=== PATIENT | female | born 1995 | race Caucasian/White ===

== ENCOUNTER 2025-01-26 07:23 | Emergency (ER) | payer OTHER, SELFPAY ==
--- NOTE | ~2025-01-26 | US_ITS ---
Limited Abdominal Sonogram: Real-time sonographic imaging of the right upper quadrant was performed. Clinical History: Pain Findings: The liver appears normal with no evidence of mass lesion or bile duct dilatation. Main por aniceto vein demonstrates normal direction of flow. The gallbladder is partially contracted, with 2.2 cm echogenic, shadowing gallstone. Gallbladder wall is slightly thickened up to 5 mm. The common bile du ct measures 6 mm. The visualized pancreas, aorta, and IVC are unremarkable. Impression: Cholelithiasis. Associated gallbladder wall thickening may be due to underdistention versus acute cholecystitis. Leanna elate clinically. Consider HIDA scan as indicated. Reviewed, dictated and finalized at location . AGER AND STRAPPER Impression: Cholelithiasis. Associated gallbladder wall thickening may be due to underdistention versus acu te cholecystitis. Correlate clinically. Consider HIDA scan as indicated.
[2025-01-26 07:23] VITALS: BP 118/59; PULSE 83; RESP 16; TEMP 36.6; O2SAT 96
--- NOTE | 2025-01-26 07:33 | ED_ITS ---
HPI - Abdominal Pain General Chief Complaint: Abdominal Pain Stated Complaint: abd pain Time Seen by Provider: 01/26/25 07:33 Source: patient Mode of arrival: ambulatory Limitations: no limitations History of Present Illness HPI narrative: Patient is a 29-year-old female with known recurrent colic gallbladder for many years and here with right upper quadrant pain for the past few days getting worse. She is having some constipation but had a bowel movement yesterday. Urination is normal pattern. Surgeons have seen the patient and have suggested to wait at this time for any kind of cholecystectomy. No history of cholecystitis. MD elicited complaint: abdominal pain Pertinent past history: other ( Gallbladder disease) Onset (ago): day(s) ( 3) Pain Consistency: constant Location: RUQ and RLQ Severity: moderate Pain scale (0-10): 4 Quality: aching and sharp Radiation: RUQ and RLQ Migration to: no migration Exacerbating factors: nothing Relieving factors: nothing Context: confirms history of similar episodes Associated symptoms: constipation Related Data Allergies Allergy/AdvReac Type Severity Reaction Status Date / Time No Known Allergies Allergy Verified 01/26/25 07:27 Review of Systems 2 Review of Systems: All systems reviewed & are unremarkable except as noted in HPI and below Constitutional: Constitutional: Reports no additional constitutional complaints Eyes: Eyes: Reports no additional eye complaints ENT: Reports system reviewed and no additional complaints, except as documented Cardiovascular: Cardiovascular: Reports no additional cardiovascular complaints Respiratory: Respiratory: Reports no additional respiratory complaints Gastrointestinal: Gastrointestinal: Reports no additional gastrointestinal complaints Genitourinary: Genitourinary: Reports no additional female genitourinary complaints Musculoskeletal: Musculoskeletal: Reports no additional musculoskeletal complaints Integumentary/Breasts: Skin/Breast: Reports system reviewed and no additional complaints, except as docu Neurologic: Reports system reviewed and no additional complaints, except as documented Psychiatric: Psychiatric: Reports no additional psychiatric complaints Endocrine: Endocrine: Reports no additional endocrine complaints Hematologic/Lymphatic: Hematologic/Lymphatic: Reports no additional hematologic/lymphatic complaints Allergic/Immunologic: Allergic/Immunologic: Reports no additional allergic/immunologic complaints Exam 2 Const: General: healthy appearing, no acute distress and alert Nutritional Appearance: well nourished Orientation/consciousness: patient oriented x3 Limitations: no limitations HENMT: Head: normal to inspection Ears: external ears normal F kennedy/Nose/Sinus: Normal external nose present Eyes: Conjunctivae: conjunctivae normal Pupils: Equal, round and reactive pupils present EOM: EOMs intact bilaterally Neck: Neck: normal visual inspection Chest: Chest palpation & inspection: normal inspection of the chest Resp: Effort & Inspection: normal respiratory effort and not labored A uscultation: clear to auscultation bilaterally, no crackles and diminished lung sounds Cardio: Rate: regular rate Rhythm: regular rhythm Heart sounds: no murmurs GI: Inspection: non-distended GI Palp: Yes Soft to palpation, Yes Tenderness to palpation present (GI) ( right upper quadrant and some right lower quadrant), No Guarding due to palpation present (GI), No Rigid due to palpation, No Hernia present, No Palpable mass present and No Rebound tenderness present Auscultation: normal bowel sounds : General: Yes bladder normal to palpation Urinary Catheter: Urinary Catheter: patent and draining Back/Spine/Pelvis: Back: no CVA tenderness Skin: General skin exam: normal color Rashes: no rashes Wounds: no wounds Neuro: General: patient oriented x3 Cranial nerves: Yes Nystagmus not present Speech: normal speech Extrem: General: normal to inspection Psych: Mental Status: mental status grossly normal Affect: normal affect Attitude: cooperative Course Vital Signs Vital signs: Vital Signs Temperature 36.6 C 01/26/25 07:23 Pulse Rate 83 01/26/25 07:23 Respiratory Rate 16 01/26/25 07:23 Blood Pressure 118/59 L 01/26/25 07:23 Pulse Oximetry 96 01/26/25 07:23 Oxygen Delivery Room Air 01/26/25 07:23 Temperature 36.6 C 01/26/25 07:23 Pulse Rate 69 01/26/25 11:30 Respiratory Rate 17 01/26/25 11:30 Blood Pressure 95/59 L 01/26/25 11:30 Pulse Oximetry 99 01/26/25 11:30 Oxygen Delivery Room Air 01/26/25 10:30 MDM - Abdominal Pain MDM Narrative Medical decision making narrative: patient is a 29-year-old female with recurrent gallbladder colic. Surgeons have decided to wait on surgery at this time. Will look for inflamed /infected gallbladder at this time. Workup in progress. Final workup is not conclusive for acute cholecystitis and review the case with Dr. Rao at [facility] who was the surgeon and he reviewed the case himself and said outpatient with Augmentin for 7 days and a follow-up for further scanning and removal. Lab Data Attestation: I reviewed the patient's lab results. 01/26/25 08:02 01/26/25 08:02 Labs: Lab Results 01/26/25 Range/Units 08:02 WBC 5.6 (4.8-10.8) K/mm3 RBC 4.47 (4.20-5.40) M/mm3 Hgb 13.2 (12.0-15.0) g/dL Hct 39.9 (35.0-49.0) % MCV 89.3 (78.0-102.0) fL MCH 29.5 (27.0-31.0) pg MCHC 33.1 (32-36) g/dL RDW 12.7 (11.6-14.4) % Plt Count 206 (150-420) K/mm3 MPV 10.4 (9.2-11.8) fl Immature Gran % (Auto) 0.4 H (0.0-0.0) % Neut % (Auto) 56.5 (50.0-70.0) % Lymph % (Auto) 34.9 (18.0-42.0) % [place] % (Auto) 6.6 (2.0-11.0) % Eos % (Auto) 0.9 L (1.0-6.0) % Baso % (Auto) 0.7 (0.0-1.0) % Lymph # (Auto) 1.96 (1.10-4.50) K/mm3 [place]lee # (Auto) 0.37 (0.10-0.90) K/mm3 Eos # (Auto) 0.05 (0.02-0.50) K/mm3 Baso # (Auto) 0.04 (0.00-0.10) K/mm3 Abs Immat Gran (auto) 0.02 H (0.00-0.00) K/mm3 Absolute Neuts (auto) 3.17 (1.70-7.20) K/mm3 Absolute Nucleated RBC 0.00 (0.00-0.00) K/mm3 Nucleated RBC % 0.0 (0-0.0) % Sodium 143 (136-145) mmol/L Potassium 4.3 (3.5-5.1) mmol/L Chloride 106 (98-108) mmol/L Carbon Dioxide 27 (21-32) mmol/L Anion Gap 10 (4-12) mmol/L BUN 10 (7-18) mg/dL Creatinine 0.81 (0.55-1.02) mg/dL Estim Creat Clear Calc 87 ml/min Estimated GFR > 60 (59 - ) Glucose 92 (70-99) mg/dL Calculated Osmolality 295 (285-295) mOsm/kg Calcium 8.4 L (8.5-10.1) mg/dL Total Bilirubin 0.4 (0.00-1.00) mg/dL AST 32 (15-37) U/L ALT 74 H (14-59) U/L Alkaline Phosphatase 96 (46-116) U/L Total Protein 7.2 (6.4-8.2) g/dL Albumin 4.0 (3.4-5.0) g/dL Lipase 37 (16-77) U/L Urine Color Light yellow (Yellow) Urine Appearance Clear (Clear) Urine pH 6.0 (5.0-8.0) Ur Specific [place] 1.025 H (1.010-1.020) Urine Protein Negative (Negative) Urine Glucose (UA) Negative (Negative) Urine Ketones Negative (Negative) Ur Blood (Man) Negative (Negative) Urine Nitrate Negative (Negative) Urine Bilirubin Negative (Negative) Urine Urobilinogen 0.2 (0.2-1.0) mg/dL Leukocyte Esterase Rfl Negative (Negative) JUNI/UL Urine Test Negative Imaging Data Attestation: I personally reviewed and interpreted this imaging study as follows: Radiologist's impression: ITS Impressions Upper Quadrant Ultrasound 01/26/25 07:57 Impression: Cholelithiasis. Associated gallbladder wall thickening may be due to underdistention versus acute cholecystitis. Correlate clinically. Consider HIDA scan as indicated. Discharge Plan Discharge Clinical Impression: Biliary colic Cholelithiasis Qualifiers: Cholelithiasis location: gallbladder Cholecystitis presence: without cholecystitis Biliary obstruction: without biliary obstruction Qualified Code(s): K80.20 - Calculus of gallbladder without cholecystitis without obstruction Patient Disposition: Home, Self-Care Condition: Stable Instructions: Antibiotic Form, Biliary Colic (ED), Gallstones (ED) Additional Instructions: please follow-up with the primary doctor in the next week. Please follow-up with the surgeon at the telephone: [phone]. They will further discuss testing and gallbladder removal. Patient Language: Kyrgyz Prescriptions: New amoxicillin-pot clavulanate 875-125 mg tablet 1 tablet PO BID 7 Days Qty: 14 0RF hydrocodone-acetaminophen 5-325 mg tablet 1 tablet PO Q8H PRN (Reason: pain) Qty: 20 0RF Rx Instructions: 1-2 tabs per dose Follow-up/Referrals: UNKNOWN,DOCTOR [Non-Staff] - Time of Disposition: 09:02
[2025-01-26 08:07] LABS: Add Urine Microscopic? NO; Appearance Urine Clear (Clear); Basophils Absolute Auto 0.04 K/mm3 (0.00-0.10); Basophils Percent Auto 0.7 % (0.0-1.0); Bilirubin Urine Negative (Negative); Blood Urine Negative (Negative); Color Urine Light Yellow (Yellow); Eosinophils Absolute Auto 0.05 K/mm3 (0.02-0.50); Eosinophils Percent Auto 0.9 % (1.0-6.0); Glucose Urine UA Negative (Negative); Hematocrit 39.9 % (35.0-49.0); Hemoglobin 13.2 g/dL (12.0-15.0); Immature Granulocyte Absolute 0.02 K/mm3 (0.00-0.00); Immature Granulocyte Percent A 0.4 % (0.0-0.0); Ketones Urine Negative (Negative); Leukocyte Esterase Ur Negative LEU/UL (Negative); Lymphocytes Absolute Auto 1.96 K/mm3 (1.10-4.50); Lymphocytes Percent Auto 34.9 % (18.0-42.0); Mean Corpuscular HGB Conc 33.1 g/dL (32-36); Mean Corpuscular Hemoglobin 29.5 pg (27.0-31.0); Mean Corpuscular Volume 89.3 fL (78.0-102.0); Mean Platelet Volume 10.4 fl (9.2-11.8); Monocytes Absolute Auto 0.37 K/mm3 (0.10-0.90); Monocytes Percent Auto 6.6 % (2.0-11.0); Neutrophils Absolute Auto 3.17 K/mm3 (1.70-7.20); Neutrophils Percent Auto 56.5 % (50.0-70.0); Nitrate Urine Negative (Negative); Platelet Count Result 206 K/mm3 (150-420); Protein Urine Negative (Negative); Red Blood Count 4.47 M/mm3 (4.20-5.40); Red Cell Distribution Width 12.7 % (11.6-14.4); Specific Grav Ur 1.025 (1.010-1.020); Urobilinogen Urine 0.2 mg/dL (0.2-1.0); White Blood Count 5.6 K/mm3 (4.8-10.8)
[2025-01-26 08:10] LABS: Pregnancy On Board Control Positive; Urine Pregnancy Test Negative
[2025-01-26 08:27] LABS: Alanine Aminotransferase 74 U/L (14-59); Alkaline Phosphatase 96 U/L (46-116); Anion Gap 10 mmol/L (4-12); Aspartate Amino Transferase 32 U/L (15-37); Bilirubin,Total 0.4 mg/dL (0.00-1.00); Blood Urea Nitrogen 10 mg/dL (7-18); Calcium 8.4 mg/dL (8.5-10.1); Carbon Dioxide 27 mmol/L (21-32); Chloride 106 mmol/L (98-108); Estimated CRCL calculation 87 ml/min; Estimated Glomerular Filt Rate > 60; Glucose 92 mg/dL (70-99); Lipase 37 U/L (16-77); Osmolality Calculated 295 mOsm/kg (285-295); Potassium 4.3 mmol/L (3.5-5.1); Sodium 143 mmol/L (136-145); Total Protein 7.2 g/dL (6.4-8.2)
--- OUTSIDE RECORDS SUMMARY | 2025-01-26 08:28 | XMS_ITS | Clinical Summary ---
Author Organization [facility] Address [facility] [place] [address] Care Team Providers Care Vice President Pharmacy Name Role Phone None, Provider MD Primary Care Provider Unavaila ble Allergies Active Allergy Reactions Criticality Noted Date Comments Amoxicillin Hives 12/12/2017 Penicillins Hives 12/12/2017 Medications vitamin 27-1 MG Tab tablet Take 1 tablet by mouth daily. Active HYDROcodone-kennedy taminophen 5-325 MG tabletIndicatio ns:Acute Pain < 7 Day Supply Take 1 tablet by mouth every 4 (four) hours as needed. Indications: Acute Pain < 7 Day Supply 20 tablet 11/15/2020 Active naproxen (NAPROSYN) 500 MG tabletIndicatio ns: delivery delivered ([facility]) Take 1 tablet (500 mg total) by mouth 2 (two) times daily as needed (Take with food for moderate pain). 40 tablet 11/15/2020 Active Resolved Problems Problem Noted Date Diagnosed Date Resolved Date Vaginal bleeding 11/12/2020 11/15/2020 Immunizations Name Administration Dates Next Due Fluzone 6 Months+ Quad (0.5 mL Prefilled Syringe ) 11/14/2020 Family History Medical History Relation Comments Diabetes Maternal Grandmother Breast Cancer Mother Relation Status Comments Maternal Grandmother Mother Social History Tobacco Use Types Packs/Day Years Used Date Smoking Tobacco: Never Smokeless Tobacco: Never Alcohol Use Standard Drinks/Week Comments Not Currently 0 (1 standard drink = 0.6 oz pur e alcohol) Humiliation, Afraid, Rape, and Kick questionnair e Answer Date Recorded Within the last year, have y ou been afraid of your partner or ex-partner? No 10/20/2020 Within the last year, have y ou been humiliated or emotionally abused in other ways by your partner or ex-partner? No Within the last year, have y ou been kicked, hit, slapped, or otherwise physically hurt by your partner or ex-partner? No 10/20/2020 Within the last year, have y ou been raped or forced to have any kind of sexual activity by your partner or ex-partner? No 10/20/2020 Depression Answer Date Recor ded Last EPDS Total Score 8 11/13/2020 Last EPDS Self Harm Result 11/13 Comments No Sex and Gender Information Value Date Recorded Sex Assigned at Not on file Legal Sex Female 5:54 PM SPD MANAGER Gender Identity Not on file Sexual Orientation Not on file Last Filed Vital Signs Vital Sign Reading Time Taken Comments Blood Pressure 112/65 11/15/2020 8:43 AM SPD MANAGER Pulse 67 11/14/2020 8:00 PM SPD MANAGER Temperature 36.3 C (97.4 F) 11/15/2020 8:43 AM SPD MANAGER Respiratory Rate 16 11/15/2020 8:43 AM SPD MANAGER Oxygen Saturation 100% 11/15/2020 8:43 AM SPD MANAGER Inhaled Oxygen Concentration - - Weight 70.3 kg (155 lb) 11/12/2020 6:49 PM SPD MANAGER Height 157.5 cm (5' 2 ) 11/12/2020 6:49 PM SPD MANAGER Body Mass Index 28.35 11/12/2020 6:49 PM SPD MANAGER Plan of Treatment Health Maintenance Due Date Last Done Comments Cervical Cancer Screening Pa p Smear (Age 21 to 29) Every 3 Years 1996 Cervical Cancer Screening 1996 Annual Physical 1999 Hepatitis C 2014 DTaP, Tdap and Td Vaccines ( 1 - Tdap) 2015 Hepatitis B Vaccines (1 of 3 - 19+ 3-dose series) 2015 COVID-19 Vaccine (2023-2 5 season) 2024 Influenza Adult (#1) 2024 11/14/2020 HPV Vaccines Aged Out No longer eligi ble based on patient's age to complete this topic Meningococcal B Vaccine Aged Out No l onger eligible based on patient's age to complete this topic Meningococcal Vaccine Aged Out No jevon emma eligible based on patient's age to complete this topic Pneumococcal Vaccine: Pediat rics (0 to 5 Years) and At-Risk Patients (6 to 64 Years) Aged Out No longer eligi ble based on patient's age to complete this topic RSV Immunizations Under 20 Months Aged Out No longer eligible based on patient's age to complete this topic Insurance [facility] Advance Directives * Full Code (Latest Code Status on File) Date Activated Date Inactivated Comments 11/13/2020 8:22 AM 11/15/2020 5:12 PM * Full Code Date Activated Date Inactivated Comments 11/12/2020 8:44 PM 11/13/2020 8:22 AM Care Teams Vice President Pharmacy Relationship Specialty Start Date End Date None, Provider, PCP - General 10/20/20
--- OUTSIDE RECORDS SUMMARY | 2025-01-26 08:28 | XMS_ITS | Encounter Summary ---
Author Organization [facility] Address [facility] [place] [address] Care Team Providers Care Blast Setter Name Role Phone None, Provider MD Primary Care Provider Unavaila ble Encounter Details Date Type Department Care Team (Late st Contact Info) Description 11/17/2020 Hospital Follow-up Call [facility] [place] [address] Toay Mejia, RN Social History Tobacco Use Types Packs/Day Years [...] on file Legal Sex Female 5:54 PM METAL HANDLER Gender Identity Not on file Sexual Orientation Not on file COVID-19 Exposure Response Date Recorded In the last month, have you been in contact with someone who was confirmed or suspected to have Coronavirus / COVID-19? No / Unsure 11/12/2020 8:13 PM METAL HANDLER documented as of this encounter Functional Status * RETIRED Are you deaf or do you have serious difficulty hearing Answer Date of Assessment Author Status No 11/12/2020 9:38 PM METAL HANDLER Activ e * RETIRED Are you blind or do you have serious difficulty seeing, even when wearing glasses? Answer Date of Assessment Author Status No 11/12/2020 9:38 PM METAL HANDLER Activ e * Do you have serious difficulty walking or climbing stairs? Answer Date of Assessment Author Status No 11/12/2020 9:38 PM METAL HANDLER Mandy Arroyo RN A ctive * Do you have difficulty dressing or bathing? Answer Date of Assessment Author Status No 11/12/2020 9:38 PM METAL HANDLER Mandy Arroyo RN A ctive * Because of a physical, mental, or emotional condition, do you have difficulty doing errands alone such as visiting a doctor's office or shopping? Answer Date of Assessment Author Status No 11/12/2020 9:38 PM Mandy Guzman RN A ctive documented as of this encounter Mental Status * Because of a physical, mental, or emotional condition, do you have serious difficulty concentrating, remembering, or making decisions? Answer Entry Date Author Status No 11/12/2020 9:38 PM Mandy Guzman RN A ctive documented in this encounter Plan of Treatment Not on file documented as of this encounter Visit Diagnoses Not on filedocumented in this encounter Care Teams Blast Setter Relationship Specialty Start Date End Date None, Provider, PCP - General 10/20/20 documented as of this encounter
--- OUTSIDE RECORDS SUMMARY | 2025-01-26 08:28 | XMS_ITS | Data Portability ---
Author Organization [facility] JUDYJared Address [address] [place] [address] Care Team Providers Care Marketing Graphics Specialist Name Role Phone TIFFANIE LINO Primary Care Provider Assessment No assessment recorded. Plan of Treatment Reminders Order Date Submit Date Provider Last Modified By Organization Details Last Modified Time Details Appointments None recorded. Lab influenza virus A + B + SARS-CoV-2 (COVID19) Ag panel, rapid IA, upper respirator y specimen 2023 024 mariah In-Office Order, Internal Use Only DO Not Attach Compendium DO Not Attach Compendium, Do Not Delete/merge, [id number] 4 12:42:[address] referral 2023 024 dteldon Maki [employer], [address] , [facility] [address], [place], [address], 4 08:55:25 Procedures None recorded. Surgeries None recorded. Imaging None recorded. Medication Orders azithromyc in 500 [address] [facility] [place], [address], 4 10:31:26 buspirone 10 [address] tablet [address] [facility] [address] [place], [address], 3 15:42:50 Patient TargetsNo targets recorded. Patient Instructions Encounter Date Encounter Id Patient Instructions Last Modified By Organization Details Last Modified Time 09/19/2023 [id number] A healthy lifestyle: care instructions jnanney Not available 09/19/2023 10:29:39 04/30/2024 [id number] A healthy lifestyle: care instructions jnanney Not available 04/30/2024 11:16:04 Reason for Referral Psychiatrist Referral for Mi xed anxiety and depressive disorder Referring Physician: Tiffanie Lino, Family Medicine, Encounter Date: 02/07/2024 Results Created Date Observation Date Name Description Value Unit Range Abnormal Flag Note LastModifiedBy Organization Detail LastModifiedTime 03/23/20 24 03/23/2024 influ jeremy virus A + B + SARS- CoV-2 (COVI D19) Ag panel , rapid IA, upper respi rator y speci men Flu A negati ve Not Available In-Office Order Internal Use Only DO Not Attach Compendium DO Not Attach Compendium, Do Not Delete/merge, [id number] 03/23/2024 12:23:21 03/23/20 24 03/23/2024 influ jeremy virus A + B + SARS- CoV-2 (COVI D19) Ag panel , rapid IA, upper respi rator y speci men Flu B negati ve Not Available In-Office Order Internal Use Only DO Not Attach Compendium DO Not Attach Compendium, Do Not Delete/merge, [id number] 03/23/2024 12:23:21 03/23/20 24 03/23/2024 influ jeremy virus A + B + SARS- CoV-2 (COVI D19) Ag panel , rapid IA, upper respi rator y speci men Rapid SARS CoV 2 Ag, QL IA, respiratory specimen negati ve Not Available In-Office Order Internal Use Only DO Not Attach Compendium DO Not Attach Compendium, Do Not Delete/merge, [id number] 03/23/2024 12:23:21 10/17/20 23 10/17/2023 CT, abdom en + pelvi s, w/o contr ast No observ ation record ed. [facility] [address] [place], [address], 10/17/2023 16:36:19 Result Notes None recorded. Problems No Known Problems Procedures Surgical History Date Name Laterality Status Provider Name and Address Organization Details Recorded Time section completed Nelida Suero MA [facility] 09/25/2022 14:06:05 repair of heart completed Nelida Suero MA [facility] 09/25/2022 14:05:42 Imaging Results Imaging Date Name Status [facility]Modified by [facility] Details LastModified Time 10/17/2023 CT, abdomen + pelvis, w/o contrast completed [facility] [address] [place], [address], 10/17/2023 16:36:19 Procedure Notes None recorded. Medical Equipment None Reported. Allergies Allergen ID Allergen Name Allergen Category Reaction Reaction Severity Criticality Documentation Date Start Date Code Code System Note Provider Name and Address Organization Details Recorded Time 482253 Product containin g penicilli n (product) medicatio n Not available Not available Not available 09/25/2022 37848 8001 SNOMED Not Available Not Available Not Available 971404 amoxicill in medicatio n Not available Not available Not available 09/25/2022 723 RxNorm Not Available Not Available Not Available Medications Name Sig Start Date Stop Date Status Note LastModified by Organization Details LastModified Time bupropion HCl SR 150 mg tablet,12 hr sustained-r elease TAKE 1 TABLET BY MOUTH TWICE DAILY 07/26 completed Not Available Not Available Not Available clindamycin HCl 300 mg capsule TAKE 1 CAPSULE BY MOUTH EVERY 6 HOURS active Not Available Not Available No t Available azithromyci n 250 mg tablet active Not Available Not Available Not Available ibuprofen 800 mg tablet TAKE 1 TABLET BY MOUTH THREE TIMES DAILY active Not Available Not Available No t Available hydrocodone 5 mg-acetamin ophen 325 mg tablet TAKE 1 TABLET BY MOUTH EVERY 8 HOURS NEEDED FOR MODERATE TO SEVERE PAIN active Not Available Not Available No t Available ondansetron HCl 4 mg tablet TAKE 1 TO 2 TABLETS BY MOUTH EVERY 8 HOURS NEEDED FOR NAUSEA active Not Available Not Available No t Available sumatriptan 50 mg tablet TAKE 1 TABLET BY MOUTH AT ONSET, MAY REPEAT IN 2 HOURS IF NEEDED, NO MORE THAN 2 TABLETS IN 24 HOURS active Not Available Not Available No t Available ciprofloxac in 500 mg tablet TAKE 1 TABLET BY MOUTH EVERY 12 HOURS FOR 10 DAYS active Not Available Not Available No t Available tramadol 50 mg tablet TAKE 1 TABLET BY MOUTH EVERY 6 HOURS NEEDED 11/13 completed Not Available Not Available Not Available lamotrigine 25 mg tablet TAKE 1 TABLET BY MOUTH TWICE DAILY 07/26 completed Not Available Not Available Not Available famotidine 20 mg tablet TAKE 1 TABLET BY MOUTH ONCE DAILY 09/25 completed Not Available Not Available Not Available pantoprazol e 40 mg tablet,michaela yed release TAKE 1 TABLET BY MOUTH ONCE DAILY 09/25 completed Not Available Not Available Not Available buspirone 10 mg tablet TAKE 1 TABLET BY MOUTH THREE TIMES DAILY 11/13 completed Not Available Not Available Not Available methylpredn isolone 4 mg tablets in a dose pack FOLLOW PACKAGE DIRECTION S 01/31 completed Not Available Not Available Not Available ondansetron 4 mg disintegrat ing tablet DISSOLVE 1 TABLET IN MOUTH EVERY 6 HOURS NEEDED FOR NAUSEA AND VOMITING 07/26 completed Not Available Not Available Not Available fluoxetine 20 mg capsule TAKE 1 CAPSULE BY MOUTH ONCE DAILY 07/26 completed Not Available Not Available Not Available dicyclomine 10 mg capsule TAKE 1 CAPSULE BY MOUTH 4 TIMES DAILY 09/25 completed Not Available Not Available Not Available metoclopram alex 10 mg tablet TAKE 1 TABLET BY MOUTH THREE TIMES DAILY BEFORE MEAL(S) 09/25 completed Not Available Not Available Not Available azithromyci n 500 mg tablet TAKE 1 TABLET BY MOUTH ONCE DAILY FOR 3 DAYS active Not Available Not Available No t Available escitalopra m 10 mg tablet TAKE 1 TABLET BY MOUTH ONCE DAILY 11/13 completed Not Available Not Available Not Available Vitals Date Recorded Body height Body mass index (BMI) Body weight Respiratory rate Oxygen saturation Oxygen saturation in Arterial blood by Pulse oximetry Heart rate Systolic blood pressure Diastolic blood pressure Provider Name and Address Organization Details Last Updated DateTime 3 157.48 cm 33.1 kg/m2 32232.2 2 g 16 /min 97 % 97 % 84 /min 110 mm[Hg] 76 mm[Hg] Leanne Webb [place] [facility] 3 10:04:26 Date Recorded Body height Body mass index (BMI) Body weight Respiratory rate Oxygen saturation Oxygen saturation in Arterial blood by Pulse oximetry Heart rate Systolic blood pressure Diastolic blood pressure Provider Name and Address Organization Details Last Updated DateTime 3 157.48 cm 33.3 kg/m2 10968.8 1 g 16 /min 98 % 98 % 91 /min 111 mm[Hg] 77 mm[Hg] Leanne Webb MA [facility] 3 15:45:10 Date Recorded Body height Body mass index (BMI) Body weight Oxygen saturation Oxygen saturation in Arterial blood by Pulse oximetry Heart rate Systolic blood pressure Diastolic blood pressure Provider Name and Address Organization Details Last Updated DateTime 4 157.48 cm 33.3 kg/m2 50514.5 1 g 99 % 99 % 85 /min 108 mm[Hg] 74 mm[Hg] Leanne Webb MA [facility] 4 17:06:57 Date Recorded Body height Body mass index (BMI) Body weight Systolic blood pressure Diastolic blood pressure Provider Name and Address Organization Details Last Updated DateTime 03/23/2024 157.48 cm 33 kg/m2 36684.73 g 104 mm[Hg] 70 mm[Hg] Leanne Webb MA [facility] 4 12:04:13 Date Recorded Body height Heart rate Oxygen saturation Oxygen saturation in Arterial blood by Pulse oximetry Body mass index (BMI) Body weight Systolic blood pressure Diastolic blood pressure Provider Name and Address Organization Details Last Updated DateTime 4 157.48 cm 69 /min 97 % 97 % 32.6 kg/m2 86937.4 4 g 110 mm[Hg] 60 mm[Hg] Leanne Webb MA [facility] 4 10:33:51 Social History Question Answer Notes LastModified by Organizat ion Details LastModified Time Tobacco Smoking Status Never Smoker Nelida Suero MA [facility] 09/25/2022 14:04:16 What Is Your Level Of Alcohol Consumption? Occasional Information not available 09/25/2022 Are You Blind Or Do You Have Difficulty Seeing? No Information not available 09/25/2022 What Is Your Level Of Caffeine Consumption? Heavy Information not available 09/25/2022 Are You Deaf Or Do You Have Serious Difficulty Hearing? No Information not available 09/25/2022 What Type Of Diet Are You Following? REGULAR Information not available 09/25/2022 What Was The Date Of Your Most Recent Tobacco Screening? 04/30/2024 [email or web address] Information not available 04/30/2024 How Many Children Do You Have? 1 Information not available 09/25/2022 What Is Your Relationship Status? Information not available 09/25/2022 Do You Have Smoke And Carbon Monoxide Detectors In Your Home? Yes Information not available 09/25/2022 Are You Passively Exposed To Smoke? Yes Outside Information not available 09/25/2022 Do You Feel Stressed (tense, Restless, Nervous, Or Anxious, Or Unable To Sleep At Night)? [id number] Information not available 09/25/2022 Do You Use Any Illicit Or Recreational Drugs? No Information not available 09/25/2022 Do You Or Have You Ever Used Any Other Forms Of Tobacco Or Nicotine? No Information not available 09/25/2022 Sex: Unknown Functional Status Question Answer Note LastModified by Organization D etails LastModified Time Are you able to care for yourself? Yes Information n ot available 09/25/2022 What is your exercise level? None Information not available 09/25/2022 Mental Status None recorded. Family History Nothing Reported. Medical History Condition Response Coronary Artery Disease N Other N High Blood Pressure N Atrial Fibrillation N Thyroid Problems N Kidney or Bladder Problems N GI Problems N Depression N COPD N Blood Clots N Skin Problems N Eating Disorder N Anemia N Heart Attack ([place]) N Anxiety Disorder N Diabetes N Muscle, Joint, or Bone Problems N Seizures/Epilepsy N Acid Reflux (GERD) N Cancer N Stroke N Asthma N Allergies N ADHD N Substance Abuse N High Cholesterol N Hepatitis N Liver Disease N Schizophrenia N Headaches N Heart Failure N Osteoporosis N Gynecological History Statement/Question Response Date of Last Pap Smear Current Control Method None Date of LMP 03/23/2024 LMP Approximate Obstetrics History GPAL:G 0 P 0 0 0 0 Immunizations Vaccine Type Date Status Note Provider Nam e and Address Organization Details Recorded Time Influenza, split virus, quadrivalent, PF 11/14/2020 completed Not Available [facility] 16:06:14 Past Encounters Encounter ID Performer Location Encounter Start Date Encounter Closed Date Diagnosis/Indication Diagnosis SNOMED-CT Code Diagnosis ICD10 Code Diagnosis Note [id number] [place] Brito [address] [place] [address] 09/25/2022 13:46:24 09/26/2022 09:32:29 Mixed anxiety and depressive disorder 886189831 F41.8 Long-term drug therapy 074069507 Z79.533 [id number] Tiffanie Lino PA-C [facility] [address] [place] [address] 12/06/2022 11:08:57 12/06/2022 11:41:23 Generalized aches and pains 45291956 R52 Suspected COVID-19 78510 4004 Z20.822 Overweight 117269166 E66 .3 Obesity 298447066 E66.9 [id number] Tiffanie Lino PA-C [facility] [address] [place] [address] 01/31/2023 11:38:02 02/01/2023 09:56:42 Salguero's neuroma of right foot 3878678341 17008 G57.61 Amenorrhea 49060807 N91. 0 Overweight 351201162 E66 .3 [id number] Tiffanie Lino PA-C [facility] [address] [place] [address] 07/26/2023 11:19:13 07/29/2023 12:31:11 Mixed anxiety and depressive disorder 285091973 F41.8 [id number] Tiffanie Lino PA-C [facility] [address] [place] [address] 09/19/2023 09:53:29 09/27/2023 14:15:03 Mixed anxiety and depressive disorder 803714849 F41.8 Overweight 476352394 E66 .3 [id number] Tiffanie Lino PA-C [facility] [address] [place] [address] 11/13/2023 15:37:47 11/19/2023 16:01:21 Migraine without aura 04163021 G43.470 [id number] Tiffanie Lino PA-C [place] [address] [place] [address] 02/07/2024 16:58:14 02/10/2024 17:02:17 Mixed anxiety and depressive disorder 079188294 F34.1 [id number] [place] Brito [address] [place] [address] 03/23/2024 11:50:54 03/24/2024 10:45:34 Nasal congestion 20766641 R09.81 Acute maxi llary sinusitis 90412248 J01.01 [id number] Tiffanie Lino PA-C [facility] [address] [place] [address] 04/30/2024 10:23:09 05/01/2024 16:57:09 Impacted cerumen in right ear 4501168464 528431 H61.21 Overweight 894263308 E66 .3 Health Concerns Section Related Observation LastModified by Organization Detai ls LastModified Time None Recorded Concern Status LastModified by Organization Details LastModified Time None Recorded Advance Directives Directive None Recorded Payers Encounter Date Sequence Insurance Name Policy Number Policy Watson Covered Member ID Watson Member ID Guarantor Name 09/19/2023 1 *SELF PAY* Sheri Gordon 11/13/2023 1 *SELF PAY* Sheri Gordon 02/07/2024 1 *SELF PAY* Sheri Gordon 03/23/2024 1 *SELF PAY* Sheri Gordon 04/30/2024 1 *SELF PAY* Sheri Gordon Notes Date Note Type Note Provider Name and Address Organization Details Recorded Time 09/19/2023 text/html recheck on buspar...working well...will sometimes have some anxiety attacks...works great during the day... Tiffanie Lino PA-C Attn: Accounting,[address] [place], [address], [place] [facility] 09/19/2023 10:31:46 11/13/2023 text/html has been on lexapro for months...buspiro ne added in september...said she got a migraine chills diarrhea...was in [place] at the time...quit lexapro and slowed the buspirone....fee ls better now...felt like a migraine... Tiffanie Lino PA-C Attn: Accounting,[address] [facility], [place], [address], [facility] 11/13/2023 16:33:16 02/07/2024 text/html stress..trouble focusing...brain wont stop rolling ...both siblings have ADD Tiffanie Lino PA-C Attn: Accounting,[address] [facility], [place], [address], [facility] 02/07/2024 17:23:27 03/23/2024 text/html sore throat bodyaches cough Tiffanie Lino PA-C Attn: Accounting,[address] [place], [address], [facility] 03/23/2024 12:44:40 04/30/2024 text/html Sore throat and right earache that started on Saturday. No fever. Non-productive cough present due to throat irritation. Nasal drainage since yesterday. Was green and now clear. Took Mucinex this morning. No exposure to anyone else that has been sick. Appetite has been good. Denies body aches and fatigue. Denies seasonal allergies. States she was recently sick about 1 month ago with similar sx. Tiffanie Lino PA-C Attn: Accounting,[address] [place], [address], [facility] 04/30/2024 11:16:35 OBGyn Episode No OBEpisode recorded.
--- OUTSIDE RECORDS SUMMARY | 2025-01-26 08:28 | XMS_ITS | Clinical Summary ---
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 10 Tablet 09/17/2024 Active traZODone (DESYREL) 100 MG TabletIndicatio ns:Anxiety and depression Take 1 Tablet by mouth nightly for 360 days. 90 Tablet 3 12/15/2024 12/10/19 26 Active doxycycline hyclate (VIBRAMYCIN) 100 MG CapsuleIndicati ons:Bilateral otitis media with effusion Take 1 Capsule by mouth 2 times daily for 15 days. 30 Capsule 12/15/2024 12/30/19 25 Active Problems No known active problems Encounters Date Type Department Care Team Description 01/04/[address] [facility] [address] [place] [address] Sienna White, WARD 12/15/2024 3:30 PM AIRPLANE PATROL PILOT Office Visit [facility] - [place] [place] [address] Lore Roque MD [facility], initial encounter (Primary Dx); Bilateral otitis media with effusion; Anxiety and depression Discharge Disposition: Discharged to home or Selfcare 12/15/2024 Travel 12/09/2024 [facility] Project Coordinator Rn Management [address] [place] [phone] Yuliya Mckay Care Management (Weekly monitoring call-(Week 4)) 11/30/2024 2:00 PM AIRPLANE PATROL PILOT Office Visit [facility] [place] [facility] [place] [address] [place] [address] Lakshmi Biggs APRN, LEGAL RESEARCHER Intractable headache, unspecified chronicity pattern, unspecified headache type (Primary Dx); Viral upper respiratory tract infection Discharge Disposition: Discharged to home or Selfcare 11/30/2024 Travel 11/27/2024 Patient Outreach [facility] Project Coordinator Rn Management [address] [place] [address] [phone] Yuliya Mckay Care Management (Bi-weekly monitoring-(Week 2)) 11/19/2024 [facility]phone [facility] [address] [place] [phone] Lore Roque MD Advice Only 11/19/2024 Patient Outreach [facility] Project Coordinator Rn Management [address] [place] [address] [phone] Yuliya Mckay Care Management (Weekly monitoring call-(Week 1)) 11/13/2024 [facility]phone [facility] [address] [place] [phone] Lore Roque MD Results (Labs ) 11/12/2024 [facility] Project Coordinator Rn Management [address] [place] [phone] Emilee Hurtado LSW Care Management ([facility]) 11/10/2024 Nurse Triage [facility] [address] [place] [phone] Lore Roque MD Urinary Problem; Vaginal Bleeding 11/09/2024 10:00 AM AIRPLANE PATROL PILOT Lab [facility] [place] [address] [place] [phone] Depressive type psychosis (Primary Dx); Anxiety disorder of childhood or adolescence Discharge Disposition: Discharged to home or Selfcare 11/09/2024 8:00 AM AIRPLANE PATROL PILOT [facility] - [place] [address] [place] [phone] Lore Roque MD Anxiety and depression (Primary Dx); Post traumatic stress disorder Discharge Disposition: Discharged to home or Selfcare 11/09/2024 Travel 11/04/[address] [facility] [address] [place] [phone] Lore Roque MD 11/02/2024 Telephone [facility] [address] [place] [phone] Provider, None New Patient from Last 3 Months Immunizations Immunization Administration Dates Next Due Influenza Vaccine, Quadrivalent, PF 11/14/2020 Influenza,Split Virus,Trivalent,Injectable,PF Social History Tobacco Use Types Packs/Day Years Used Date Smoking Tobacco: Never Smokeless Tobacco: Never Alcohol Use Standard Drinks/Week Comments Yes 0 (1 standard drink = 0.6 oz pur e alcohol) Occasionally [employer] Utilities Answer Date Recorded In the past 12 months has e [employer], gas, oil, or water [employer] threatened to shut off services in your home? No 11/12/2024 Social Connection and Isolat ion Panel [NHANES] Answer Date Recorded In a typical week, how many times do you talk on the phone with family, friends, or neighbors? More than three times a week 11/12/2024 How often do you get togethe r with friends or relatives? Never 11/12/2024 How often do you attend chur ch or anabaptism services? Never 11/12/2024 Do you belong to any clubs o r organizations such as gnosticism groups, unions, fraternal or athletic groups, or school groups? No 11/12/2024 How often do you attend meet ings of the clubs or organizations you belong to? Never 11/12/2024 Are you , , di vorced, , never , or living with a partner? 11/12/2024 AUDIT-C Answer Date Recorded Q1: How often do you have a drink containing alc ohol? Monthly or less 11/12/2024 Q2: How many drinks containi ng alcohol do you have on a typical day when you are drinking? 1 or 2 11/12/2024 Q3: How often do you have si x or more drinks on one occasion? Never 11/12/2024 Overall Financial Resource Strain (CARDIA) Answe r Date Recorded How hard is it for you to pa y for the very basics like food, housing, medical care, and heating? Not hard at all 11/12/2024 PHQ-2 Answer Date Recorded Total Score - Questions 1-9 5 12/02 [facility] - Occupational Stress Questionnaire Answer Date Recorded Do you feel stress - tense, restless, nervous, or anxious, or unable to sleep at night because your mind is troubled all the time - these days? Very much 11/12/2024 Exercise Vital Sign Answer Date Recorde d On average, how many days pe r week do you engage in moderate to strenuous exercise (like a brisk walk)? 5 days 11/12/2024 On average, how many minutes do you engage in exercise at this level? 60 min 11/12/2024 Hunger Vital Sign Answer Date Recorded Within the past 12 months, y ou worried that your food would run out before you got the money to buy more. Never true 11/12/20 24 Within the past 12 months, t he food you bought just didn't last and you didn't have money to get more. Never true 11/12/2024 PRAPARE - Transportation Answer Date Re corded In the past 12 months, has l ack of transportation kept you from medical appointments or from getting medications? No 11/01 In the past 12 months, has l ack of transportation kept you from meetings, work, or from getting things needed for daily living? No 11/12/2024 Housing Stability Vital Sign Answer Abdulaziz e Recorded In the last 12 months, was t here a time when you were not able to pay the mortgage or rent on time? No 11/12/2024 In the past 12 months, how m any times have you moved where you were living? 0 11/12/2024 At any time in the past 12 m [facility], were you homeless or living in a chcf (including now)? No 11/12/2024 Sexually Active Control Partners Comments Yes Male Comments No Sex and Gender Information Value Date Recorded Sex Assigned at Not on file Legal Sex Female 8:52 AM CDT Gender Identity Not on file Sexual Orientation Not on file Last Filed Vital Signs Vital Sign Reading Time Taken Comments Blood Pressure 94/70 12/15/2024 3:42 [address] AIRPL[address] PATROL PILOT Pulse 63 12/15/2024 3:42 PM AIRPLANE PATROL PILOT Temperature 36.6 C (97.9 F) 12/15/2024 3:42 PM AIRPLANE PATROL PILOT Respiratory Rate 14 12/15/2024 3:42 PM AIRPLANE PATROL PILOT Oxygen Saturation 98% 12/15/2024 3:42 PM AIRPLANE PATROL PILOT Inhaled Oxygen Concentration - - Weight 78 kg (172 lb) 12/15/2024 3:42 PM AIRPLANE PATROL PILOT Height 157.5 cm (5' 2 ) 12/15/2024 3:42 PM AIRPLANE PATROL PILOT Body Mass Index 31.46 12/15/2024 3:42 PM AIRPLANE PATROL PILOT Plan of Treatment Health Maintenance Due Date Last Done Comments Hepatitis C Virus (HCV) Screening 1996 TdaP Immunization 1996 Hepatitis B Immunization (1 of 3 - 19+ 3-dose series) 2015 Pap Smear 2017 SARS-COV-2 Immunization ( season) 2024 Respiratory Syncytial Virus (RSV) Immunization (Adult) (1 - 1-dose 75+ series) 2071 Influenza Immunization Completed , 11/14/2020 Meningococcal Immunization (ACWY) Aged Out No longer eligible b ased on patient's age to complete this topic Pneumococcal Immunization Combined Aged Out No longer eligible b ased on patient's age to complete this topic Rotavirus Immunization Aged Out No lo nger eligible based on patient's age to complete this topic Procedures Procedure Name Priority Date/Time Associated Diagnosis Comments POC SARS-COV-2 BY MOLECULAR Routine 11/30/2024 2:10 PM AIRPLANE PATROL PILOT Intractable headache, unspecified chronicity pattern, unspecified headache type POC INFLUENZA A AND B BY MOLECULAR Routine 11/30/2024 2:10 PM AIRPLANE PATROL PILOT Intractable headache, unspecified chronicity pattern, unspecified headache type LIPID PANEL 11/09/2024 12:00 AM AIRPLANE PATROL PILOT LAB - MISCELLANEOUS 11/09/2024 1 2:00 AM AIRPLANE PATROL PILOT URINALYSIS (UA) RANDOM 12:00 AM AIRPLANE PATROL PILOT COMPLETE BLOOD COUNT (CBC) WITH DIFF 11/09/2024 12:00 AM AIRPLANE PATROL PILOT CMP (COMPREHENSIVE METABOLIC PANEL) 11/09/2024 12:00 AM AIRPLANE PATROL PILOT CULTURE, URINE 11/09/2024 12:00 AM AIRPLANE PATROL PILOT from Last 3 Months Results * POC SARS-COV-2 BY MOLECULAR (11/30/2024 2:10 PM AIRPLANE PATROL PILOT) SARSCOV2 Negative Negative, INVALID PROCEDURE CONTROL Valid 11/30/2024 2:10 PM AIRPLANE PATROL PILOT Result [facility] Lakshmi Biggs APRN, CNP POINT OF CARE TESTING (MAN UAL) Final Result * POC INFLUENZA A AND B BY MOLECULAR (11/30/2024 2:10 PM AIRPLANE PATROL PILOT) INFLUENZA A RNA Negative Negative, Invalid INFLUENZA B RNA Negative Negative, Invalid PROCEDURE CONTROL Valid 11/30/2024 2:10 PM AIRPLANE PATROL PILOT Lakshmi Biggs APRN, CNP POINT OF CARE TESTING (MAN UAL) Final Result * LAB - MISCELLANEOUS (11/09/2024 12:00 AM AIRPLANE PATROL PILOT) 11/09/2024 us Provider Scan CHEMISTRY ORDERABLES Final Resul t SCAN * URINALYSIS (UA) RANDOM (11/09/2024 12:00 AM AIRPLANE PATROL PILOT) 11/09/2024 us Provider Scan URINE ORDERABLES Final Result Performing Organization Address [facility] Co de Phone Number SCAN * LIPID PANEL (11/09/2024 12:00 AM AIRPLANE PATROL PILOT) CHOLESTEROL 218 SCAN HDL CHOLESTEROL 43 SCAN LDL 149 SCAN 11/09/2024 us Provider Scan CHEMISTRY ORDERABLES Final Resul t Performing Organization Address [facility] Co de Phone Number SCAN * CULTURE, URINE (11/09/2024 12:00 AM AIRPLANE PATROL PILOT) 11/09/2024 us Provider Scan MICROBIOLOGY - GENERAL ORDERABLE S Final Result Performing Organization Address [facility] Co de Phone Number SCAN * CMP (COMPREHENSIVE METABOLIC PANEL) (11/09/2024 12:00 AM AIRPLANE PATROL PILOT) 11/09/2024 us Provider Scan CHEMISTRY ORDERABLES Final Resul t SCAN * COMPLETE BLOOD COUNT (CBC) WITH DIFF (11/09/2024 12:00 AM AIRPLANE PATROL PILOT) 11/09/2024 us Provider Scan HEMATOLOGY ORDERABLES Final Resu lt Performing Organization Address [facility] Co de Phone Number SCAN from Last [address] [place] [address] Care 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 [phone] PCP - General Family Medicine 11/09/24
--- OUTSIDE RECORDS SUMMARY | 2025-01-26 08:28 | XMS_ITS | Patient Health Summary ---
Author Organization [facility] Address [address] [place] [address] Care Team Providers Care Graphic Design Manager Name Role Phone Unavailable Primary Care Provider Unavailabl e Note from [facility],non-owned Affiliates and Associated Physician Practices is amultiple site organization consisting of ambulatory clinics and hospital sitesin [place], [place], [place] and [place]. This disclosure is being madepursuant to the Care Everywhere program and may not contain all information available regarding this patient. Last updated 18.[facility] Allergies * Amoxicillin(Rash) -Medium Criticality * Penicillins(Rash) -Medium Criticality Medications * Be aware that medications may not be up to date on this document. Alwaysverify current medications with the patient. * acetaminophen (TYLENOL) 500 MG capsule(Started 03/17/2021) Take 1 (one) capsule by mouth every 4 hours as needed for Pain * omeprazole (PRILOSEC) 10 MG capsule(Started 09/10/2021) Take 1 (one) capsule by mouth daily before breakfast * pantoprazole EC (PROTONIX) 40 MG tablet(Started 11/05/2021) Take 1 (one) tablet by mouth once daily * famotidine (PEPCID) 20 MG tablet(Started 11/05/2021) Take 1 (one) tablet by mouth once daily * metoclopramide (REGLAN) 10 MG tablet(Started 01/09/2022) Take 1 (one) tablet by mouth 3 times daily before meals * HYDROcodone-acetaminophen (NORCO) 5-325 MG tablet(Started 02/02/2022) Take 1 (one) tablet by mouth every 6 hours as needed for Pain * ondansetron, disintegrating, (ZOFRAN ODT) 4 MG tablet(Started 02/02/2022) Take 1 (one) tablet by mouth every 6 hours as needed for Nausea/Vomiting Social History Tobacco Use Types Packs/Day Years Used Date Smoking Tobacco: Never Smokeless Tobacco: Never Alcohol Use Standard Drinks/Week Comments Yes 0 (1 standard drink = 0.6 oz pur e alcohol) Socially Sex and Gender Information Value Date Recorded Sex Assigned at Not on file Gender Identity Not on file Sexual Orientation Not on file Last Filed Vital Signs Vital Sign Reading Time Taken Comments Blood Pressure 122/73 07/04/2022 12:37 PM CDT Pulse 82 07/04/2022 12:37 PM CDT Temperature 36.8 C (98.2 F) 07/04/2022 12:37 PM CDT Respiratory Rate 18 07/04/2022 12:37 PM CDT Oxygen Saturation 100% 07/04/2022 12:37 PM CDT Inhaled Oxygen Concentration - - Weight 72.6 kg (160 lb) 07/04/2022 12:37 PM CDT Height 162.6 cm (5' 4 ) 07/04/2022 12:37 PM CDT Body Mass Index 27.46 07/04/2022 12:37 PM CDT Procedures * CARDIAC EKG ORDER(Performed 07/08/2022) * TROPONIN I(Performed 07/04/2022) * US ABDOMEN LIMITED(Performed 07/04/2022) Performed for Chest pain, unspecified type * TROPONIN I(Performed 07/04/2022) * LIPASE BLOOD(Performed 07/04/2022) * HCG BLOOD QUALITATIVE(Performed 07/04/2022) * COMPREHENSIVE METABOLIC PANEL(Performed 07/04/2022) * CBC W AUTO DIFFERENTIAL(Performed 07/04/2022) * XR CHEST 2VW(Performed 07/04/2022) Performed for Chest pain, unspecified type * EKG 12-LEAD(Performed 07/04/2022) Performed for Chest pain, unspecified type * US ABDOMEN LIMITED(Performed 02/02/2022) Performed for Upper abdominal pain * HCG BLOOD QUALITATIVE(Performed 02/02/2022) * LIPASE BLOOD(Performed 02/02/2022) * CBC W AUTO DIFFERENTIAL(Performed 02/02/2022) * COMPREHENSIVE METABOLIC PANEL(Performed 02/02/2022) * URINALYSIS REFLEX TO MICROSCOPIC NO CULTURE(Performed 01/09/2022) * CT ABDOMEN PELVIS W CONTRAST(Performed 01/09/2022) Performed for Abdominal pain, generalized * HCG BLOOD QUALITATIVE(Performed 01/09/2022) * LIPASE BLOOD(Performed 01/09/2022) * COMPREHENSIVE METABOLIC PANEL(Performed 01/09/2022) * CBC W AUTO DIFFERENTIAL(Performed 01/09/2022) * US ABDOMEN LIMITED(Performed 01/09/2022) Performed for Abdominal pain, generalized * CULTURE URINE(Performed 11/05/2021) * CT ABDOMEN PELVIS W CONTRAST(Performed 11/05/2021) Performed for Abdominal pain, epigastric * LIPASE BLOOD(Performed 11/05/2021) * HCG BLOOD QUALITATIVE(Performed 11/05/2021) * CBC W AUTO DIFFERENTIAL(Performed 11/05/2021) * COMPREHENSIVE METABOLIC PANEL(Performed 11/05/2021) * SARS-COV-2 (COVID-19) FLU A/B RSV PCR RAPID(Performed 11/05/2021) * XR CHEST 1VW PORTABLE(Performed 11/05/2021) Performed for Cough * URINE MICROSCOPIC ONLY(Performed 11/04/2021) * URINALYSIS REFLEX TO MICROSCOPIC NO CULTURE(Performed 11/04/2021) * HCG URINE QUALITATIVE - POCT (IP) INTERFACED(Performed 10/31/2021) * URINALYSIS REFLEX TO MICROSCOPIC NO CULTURE(Performed 10/31/2021) * LIPASE BLOOD(Performed 10/31/2021) * COMPREHENSIVE METABOLIC PANEL(Performed 10/31/2021) * CBC W AUTO DIFFERENTIAL(Performed 10/31/2021) * HCG URINE QUAL POCT NOTIFICATION(Performed 10/31/2021) * CT ABDOMEN PELVIS W CONTRAST(Performed 09/10/2021) Performed for RUQ abdominal pain * URINE MICROSCOPIC ONLY REFLEX TO CULTURE(Performed 09/10/2021) * HCG BLOOD QUALITATIVE(Performed 09/10/2021) * LIPASE BLOOD(Performed 09/10/2021) * URINALYSIS REFLEX MICROSCOPIC REFLEX CULTURE(Performed 09/10/2021) * COMPREHENSIVE METABOLIC PANEL(Performed 09/10/2021) * CBC W AUTO DIFFERENTIAL(Performed 09/10/2021) * XR CHEST 1VW PORTABLE(Performed 04/27/2021) Performed for Cough * SARS-COV-2 (COVID-19) IN HOUSE(Performed 04/27/2021) * INFLUENZA A+B ANTIGEN RAPID(Performed 04/27/2021) * CT ABDOMEN PELVIS W CONTRAST(Performed 03/17/2021) Performed for Abdominal pain, RUQ * LIPASE BLOOD(Performed 03/17/2021) * COMPREHENSIVE METABOLIC PANEL(Performed 03/17/2021) * CBC W AUTO DIFFERENTIAL(Performed 03/17/2021) * URINE MICROSCOPIC ONLY(Performed 03/17/2021) * HCG URINE QUALITATIVE(Performed 03/17/2021) * URINALYSIS REFLEX TO MICROSCOPIC NO CULTURE(Performed 03/17/2021) Results * CARDIAC EKG ORDER (07/08/2022 9:30 PM CDT) Narrative 07/08/2022 9:30 PM CDT Ordered by an unspecified provider. Scanned Document CARDIAC SERVICES ORD ERABLES * TROPONIN I (07/04/2022 4:40 PM CDT) Only the most recent of2 resultswithin the time period is included. Troponin I 0.021 <0.038 ng/mL 07/04/2022 5:03 PM CDT [facility] Blood BLOOD SPECIMEN / Unknown Venipuncture / Unknown 07/04/2022 4:40 PM CDT 07/04/2022 4:43 PM CDT Keke Conroy WELDER EXPERIMENTAL-NEUROPSYCHOLOGY DIVISION CHIEF LAB - CHEMI STRY ORDERABLES [facility] [address] [place] [address] * US ABDOMEN LIMITED (07/04/2022 2:10 PM CDT) Only the most recent of3 resultswithin the time period is included. Anatomical Region Laterality Modality Abdomen Ultrasound 07/04/2022 2:12 PM CDT Impressions 07/04/2022 2:44 PM CDT IMPRESSION: Unremarkable ultrasound of the right upper quadrant. > Interpreting Provider: Alise Bean MD on 07/04/2022 2:44 PM Narrative 07/04/2022 2:44 PM CDT PROCEDURE: US ABDOMEN LIMITED, DATE/TIME OF EXAM: 07/04/2022 2:11 PM, LOCATION [facility] INDICATION: Right upper quadrant pain. R07.9: Chest pain, unspecified. ADDITIONAL CLINICAL INFORMATION: Ordering Provider Reason For Exam: Technologist Note: Additional: COMPARISON: None. TECHNIQUE: Real-time ultrasound of the upper abdomen with DICOM image capture performed by blood bank technologist. FINDINGS: The hepatic echotexture is homogeneous without evidence of a focal mass. The liver is normal in size and contour. There is no intrahepatic ductal dilatation. The pancreas is partially visible, and portions of the body and head appear normal. The gallbladder appears normal without evidence of gallstones, gallbladder wall thickening or pericholecystic fluid. The common bile duct is normal in caliber. There is no evidence of ascites or fluid in Bales's pouch. The right kidney measures 10.1 cm. No right-sided hydronephrosis seen. Procedure Note Alise Bean MD - 07/04/2022 PROCEDURE: US ABDOMEN LIMITED, DATE/TIME OF EXAM: 07/04/2022 2:11 PM, LOCATION [facility] INDICATION: Right upper quadrant pain. R07.9: Chest pain, unspecified. ADDITIONAL CLINICAL INFORMATION: Ordering Provider Reason For Exam: Technologist Note: Additional: COMPARISON: None. TECHNIQUE: Real-time ultrasound of the upper abdomen with DICOM image capture performed by blood bank technologist. FINDINGS: The hepatic echotexture is homogeneous without evidence of a focal mass. The liver is normal in size and contour. There is no intrahepatic ductal dilatation. The pancreas is partially visible, and portions of the bodyand head appear normal. The gallbladder appears normal without evidence of gallstones,gallbladder wall thickening or pericholecystic fluid. The common bile duct is normalin caliber. There is no evidence of ascites or fluid in Bales's pouch.The right kidney measures 10.1 cm. No right-sided hydronephrosis seen. IMPRESSION: Unremarkable ultrasound of the right upper quadrant. > Interpreting Provider: Alise Bean MD on 07/04/2022 2:44 PM Keke Conroy WEL[employer] EXPERIMENTAL-NEUROPSYCHOLOGY DIVISION CHIEF US ORDERABL ES * CBC W AUTO DIFFERENTIAL (07/04/2022 1:21 PM CDT) Only the most recent of7 resultswithin the time period is included. WBC 6.9 4.4 - 10.7 x10E9/L 07/04/2022 1:33 PM CDT [facility] WBC Corrected 07/04/2022 1:33 PM CDT [facility] RBC 4.33 3.80 - 5.20 x10E12/L 07/04/2022 1:33 PM CDT [facility] Hemoglobin 12.4 12.0 - 15.6 gm/dL 07/04/2022 1:33 PM CDT [facility] Hematocrit 37.0 35.9 - 45.5 % 07/04/2022 1:33 PM CDT [facility] MCV 85.5 80.7 - 98.3 fl 07/04/2022 1:33 PM CDT [facility] MCH 28.6 26.7 - 34.0 pg 07/04/2022 1:33 PM CDT [facility] MCHC 33.5 30.8 - 35.9 gm/dL 07/04/2022 1:33 PM CDT [facility] Platelet Count 205 153 - 416 x10E9/L 07/04/2022 1:33 PM CDT [facility] RDW-CV 13.6 12.1 - 14.9 % 07/04/2022 1:33 PM CDT [facility] MPV 11.1 9.4 - 12.9 fl 07/04/2022 1:33 PM CDT [facility] Neutrophils % 58.4 44.0 - 73.0 % 07/04/2022 1:33 PM CDT [facility] Lymphocytes % 35.3 20.0 - 43.0 % 07/04/2022 1:33 PM CDT [facility] Monocytes % 5.4 5.0 - 13.0 % 07/04/2022 1:33 PM CDT [facility] Eosinophils % 0.4 0.0 - 6.0 % 07/04/2022 1:33 PM CDT [facility] Basophils % 0.4 0.0 - 2.0 % 07/04/2022 1:33 PM CDT [facility] Immature Granulocytes 0.1 0 - 1 % 07/04/2022 1:33 PM CDT [facility] Neutrophil Absolute 4.02 2.01 - 7.14 x10E9/L 07/04/2022 1:33 PM CDT [facility] Lymphocytes Absolute 2.43 1.07 - 3.94 x10E9/L 07/04/2022 1:33 PM CDT [facility] Monocytes Absolute 0.37 0.26 - 1.07 x10E9/L 07/04/2022 1:33 PM CDT [facility] Eosinophils Absolute 0.03 0 - 0.47 x10E9/L 07/04/2022 1:33 PM CDT [facility] Basophils Absolute 0.03 0 - 0.08 x10E9/L 07/04/2022 1:33 PM CDT [facility] Immature Granulocytes Absolute 0.01 0.00 - 0.06 x10E9/L 07/04/2022 1:33 PM CDT [facility] nRBC Auto 0 /100 WBC 07/04/2022 1:33 PM CDT [facility] Blood BLOOD SPECIMEN / Unknown Venipuncture / Unknown 07/04/2022 1:21 PM CDT 07/04/2022 1:28 PM CDT Keke Conroy APRN-NEUROPSYCHOLOGY DIVISION CHIEF LAB - HEMAT OLOGY ORDERABLES Performing Organization Address City/State/[facility] Co de Phone Number [facility] [address] [place] [address] * (ABNORMAL) COMPREHENSIVE METABOLIC PANEL (07/04/2022 1:21 PM CDT) Only the most recent of7 resultswithin the time period is included. Glucose 89 70 - 105 mg/dL 07/04/2022 1:53 PM CDT [facility] Sodium 139 136 - 145 mmol/L 07/04/2022 1:53 PM CDT [facility] Potassium 4.2 3.5 - 5.1 mmol/L 07/04/2022 1:53 PM CDT [facility] Chloride 111(H) 98 - 107 mmol/L 07/04/2022 1:53 PM CDT [facility] CO2 20(L) 23 - 31 mmol/L 07/04/2022 1:53 PM CDT [facility] Calcium 9.3 8.4 - 10.4 mg/dL 07/04/2022 1:53 PM CDT [facility] Anion Gap 8 8 - 18 mmol/L 07/04/2022 1:53 PM CDT [facility] BUN 11 7 - 18.7 mg/dL 07/04/2022 1:53 PM CDT [facility] Creatinine 0.78 0.57 - 1.11 mg/dL 07/04/2022 1:53 PM CDT [facility] Alkaline Phosphatase 69 40 - 150 U/L 07/04/2022 1:53 PM CDT [facility] ALT 22 0 - 61 U/L 07/04/2022 1:53 PM CDT [facility] AST 23 5 - 34 U/L 07/04/2022 1:53 PM T [facility] Protein Total 7.4 6.4 - 8.3 gm/dL 07/04/2022 1:53 PM T [facility] Albumin 4.5 3.5 - 5.2 gm/dL 07/04/2022 1:53 PM T [facility] Bilirubin Total 0.3 0.2 - 1.2 mg/dL 07/04/2022 1:53 PM [facility] eGFR by CKD-EPI >90 >=90 mL/min/1.7 3 m2 07/04/2022 1:53 PM [facility] Blood BLOOD SPECIMEN / Unknown Venipuncture / Unknown 07/04/2022 1:21 PM CDT 07/04/2022 1:28 PM CDT Keke Conroy APRN-NEUROPSYCHOLOGY DIVISION CHIEF LAB - CHEMI STRY ORDERABLES [facility] [place] [address] * LIPASE BLOOD (07/04/2022 1:21 PM CDT) Only the most recent of7 resultswithin the time period is included. Lipase 38 8 - 78 U/L 07/04/2022 1:53 PM T [facility] Blood BLOOD SPECIMEN / Unknown Venipuncture / Unknown 07/04/2022 1:21 PM CDT 07/04/2022 1:28 PM CDT [facility]ke Conroy [facility] - CHEMI STRY ORDERABLES Performing Organization Address [facility] de Phone Number [facility] [address] [place] [address] * HCG BLOOD QUALITATIVE (07/04/2022 1:21 PM CDT) Only the most recent of5 resultswithin the time period is included. HCG Qual Serum Negative Negative 07/04/2022 1:46 PM CDT [facility] Blood BLOOD SPECIMEN / Unknown Venipuncture / Unknown 07/04/2022 1:21 PM CDT 07/04/2022 1:28 PM CDT Narrative [facility] - 07/04/2022 1:46 PM CDT Specimens containing heterophilic antibodies may demonstrate false positive results. Specimens containing human anti-mouse antibodies may exhibit false positive or false negative results. If qualitative interpretation is inconsistant with clinical evaluation, consider confirmation by an alternative hCG method. [facility] - CHEMI [facility] ORDERABLES Performing Organization Address [facility] de Phone Number [facility] [address] [place] [address] * XR CHEST PA AND LATERAL (07/04/2022 12:58 PM CDT) Anatomical Region Laterality Modality Chest Radiographic [place] 07/04/2022 1:00 PM CDT Impressions 07/04/2022 1:01 PM CDT IMPRESSION: No consolidation > Interpreting Provider: Zain Saenz MD on 07/04/2022 1:01 PM Narrative 07/04/2022 1:01 PM CDT PROCEDURE: XR CHEST 2VW, DATE/TIME OF EXAM: 07/04/2022 12:58 PM, LOCATION [facility] INDICATION: R07.9: Chest pain, unspecified ADDITIONAL CLINICAL INFORMATION: Ordering Provider Reason For Exam: Technologist Note: Additional: COMPARISON: 11/05/2021 FINDINGS: 2 views of the chest shows accentuated central bronchovascular markings. No peripheral consolidation, pleural effusion, or pneumothorax is present. The heart size is normal. Procedure Note Zain Saenz MD - 07/04/2022 PROCEDURE: XR CHEST 2VW, DATE/TIME OF EXAM: 07/04/2022 12:58 PM, LOCATION [facility] INDICATION: R07.9: Chest pain, unspecified ADDITIONAL CLINICAL INFORMATION: Ordering Provider Reason For Exam: Technologist Note: Additional: COMPARISON: 11/05/2021 FINDINGS: 2 views of the chest shows accentuated central bronchovascular markings.No peripheral consolidation, pleural effusion, or pneumothorax is present. The heart size is normal. IMPRESSION: No consolidation > Interpreting Provider: Zain Saenz MD on 07/04/2022 1:01 PM [facility]ke Conroy [facility] ORDERABLES * EKG 12-LEAD (07/04/2022 12:41 PM CDT) Ventricular Rate 71 BPM [facility] MUSE Atrial Rate 71 BPM [facility] P-R Interval 142 ms [facility] QRS Duration ms 82 ms [facility] Q-T Interval ms 390 ms [facility] QTC Calculation (Bezet) 423 ms [facility] MUSE Calculated P Beemer 61 degrees [facility] MUSE Calculated R Beemer 21 degrees [facility] MUSE Calculated T Beemer 35 degrees [facility] MUSE Interpretation EKG Normal sinus rhythm with sinus arrhythmia poor R wave progression Borderline ECG No previous ECGs available Confirmed by MD IVANNA, WILLAM Bowens ([id number]) on 07/05/2022 8:11:41 AM [facility] MUSE 07/04/2022 12:4 1 PM CDT 07/05/2022 8:11 AM CDT Keke Conroy [facility] ECG ORDERAB LES [facility] * (ABNORMAL) URINALYSIS REFLEX TO MICROSCOPIC NO CULTURE (01/09/2022 2:46 PM TRANSPORT RN) Only the most recent of4 resultswithin the time period is included. Color UA Yellow Straw, Yellow 01/09/2022 3:09 PM [facility] Clarity UA Clear Clear 01/09/2022 3:09 PM [facility] Glucose UA Negative Negative 01/09/2022 3:09 PM [facility] Bilirubin UA Negative Negative 01/09/2022 3:09 PM [facility] Ketone UA Negative Negative 01/09/2022 3:09 PM [facility] Specific [place] UA 1.059(H) 1.005 - 1.030 01/09/2022 3:09 PM [facility] Blood UA Negative Negative 01/09/2022 3:09 PM [facility] pH UA 7.0 5.0 - 8.0 pH 01/09/2022 3:09 PM [facility] Protein UA Negative Negative 01/09/2022 3:09 PM [facility] Urobilinogen UA Negative Negative mg/dL 01/09/2022 3:09 PM [facility] Nitrite UA Negative Negative 01/09/2022 3:09 PM [facility] Leukocyte UA Negative Negative 01/09/2022 3:09 PM [facility] Urine Microscopy Urine microscopy not indicated 01/09/2022 3:09 PM [facility] Urine URINE SPECIMEN OBTAINED BY CLEAN CATCH PROCEDURE / Unknown Collection / Unknown 01/09/2022 2:46 PM TRANSPORT RN 01/09/2022 2:57 PM TRANSPORT RN Narrative [facility] - 01/09/2022 3:09 PM TRANSPORT RN Rolando Sheehan PA-C LAB - URINALYSIS ORD ERABLES [facility] [address] [place] [address] * CT ABDOMEN AND PELVIS WITH IV CONTRAST (01/09/2022 1:56 PM TRANSPORT RN) Only the most recent of4 resultswithin the time period is included. Anatomical Region Laterality Modality Abdomen, Pelvis Computed Tomogra phy 01/09/2022 2:02 PM TRANSPORT RN Impressions 01/09/2022 2:05 PM TRANSPORT RN Right adnexal cyst with likely some small amount of free fluid *Reading Radiologist: Zain Saenz on 01/09/2022 at 2:05 PM Narrative 01/09/2022 2:[address] ABDOMEN WITH CONTRAST CT PELVIS WITH CONTRAST INDICATION: Abdominal pain. Nausea. Vomiting. Diarrhea. TECHNIQUE: 5 mm images through the abdomen and pelvis with intravenous contrast. 80 cc [id number] COMPARISON: 11/05/2021 FINDINGS: CT ABDOMEN The lung bases are clear. There is mild focal fat deposition left lobe of liver presumably. The gallbladder, spleen, pancreas, and adrenal glands show no acute abnormalities. Both kidneys are unremarkable. No abdominal aortic aneurysm is present. There is no bowel obstruction, free air or free fluid. CT PELVIS: The appendix is not clearly visualized. No gross pericecal mesenteric inflammatory changes are seen. Right adnexal cyst measures at least 2.4 cm. There is likely a small amount of free fluid in the right adnexa. Uterus is intact. Urinary bladder is partially distended. There is no acute osseous abnormality. Procedure Note Zain Saenz MD - 01/09/[address] CT [address] WITH CONTRAST CT PELVIS WITH CONTRAST INDICATION: Abdominal pain. Nausea. Vomiting. Diarrhea. TECHNIQUE: 5 mm images through the abdomen and pelvis with intravenous contrast. 80 cc [id number] COMPARISON: 11/05/2021 FINDINGS: CT ABDOMEN The lung bases are clear. There is mild focal fat deposition left lobe of liver presumably. The gallbladder, spleen, pancreas, and adrenal glands show no acute abnormalities. Both kidneys are unremarkable. No abdominal aortic aneurysm is present. There is no bowel obstruction, free air or free fluid. CT PELVIS: The appendix is not clearly visualized. No gross pericecal mesenteric inflammatory changes are seen. Right adnexal cyst measures at least 2.4 cm. There is likely a small amount of free fluid in the right adnexa. Uterus is intact. Urinary bladder is partially distended. There is no acute osseous abnormality. IMPRESSION Right adnexal cyst with likely some small amount of free fluid *Reading Radiologist: Zain Saenz on 01/09/2022 at 2:05 PM Rolando Sheehan PA-C CT ORDERABLES * CULTURE URINE (11/05/2021 2:53 AM TRANSPORT RN) Culture Urine 50,000-100,000 CFU/mL urogenital navid JEANETTE 11/06/2021 9:10 AM TRANSPORT RN [facility] Urine URINE SPECIMEN OBTAINED BY CLEAN CATCH PROCEDURE / Unknown Collection / Unknown 11/05/2021 2:53 AM TRANSPORT RN 11/05/2021 2:53 AM TRANSPORT RN Jamar Patton MD LAB - MICROBIOLOGY ORDERABLES Performing Organization Address City/State/[facility] Co de Phone Number [facility] [address] [place], [place] [address], [facility] [phone] * SARS-COV-2 (COVID-19) FLU A/B RSV PCR RAPID (11/05/2021 12:48 AM TRANSPORT RN) COVID-19 PCR Not detected Not detected 11/05/20 1:35 AM TRANSPORT RN [facility] Influenza A PCR Not detected Not detected 11/05/2021 1:35 AM TRANSPORT RN [facility] Influenza B PCR Not detected Not detected 11/05/2021 1:35 AM TRANSPORT RN [facility] RSV PCR Not detected Not detected 11/05/2021 1:35 AM TRANSPORT RN [facility] Microbiology SPECIMEN FROM NASOPHARYNGEAL STRUCTURE / Unknown Collection / Unknown 11/05/2021 12:48 AM TRANSPORT RN 11/05/2021 12:53 AM TRANSPORT RN Narrative [facility] - 11/05/2021 1:35 AM TRANSPORT RN This nucleic acid amplification assay has been authorized by the Food and Drug administration (FDA) under an Emergency Use Authorization (EUA). This test is only authorized for the duration of time the declaration that circumstances exist justifying the authorization of emergency use of in vitro diagnostic tests for detection of SARS-CoV-2 virus and/or diagnosis of COVID-19 infection under section 564(b)(1) of the Act, 21 U.S.C 360bbb-3 (b)(1), unless the authorization is terminated or revoked sooner. Fact Sheets for this EUA assay are available upon request. Jamar Patton MD LAB - MICROBIOLOGY ORDERABLES [facility] [address] [address] * XR CHEST 1VW PORTABLE (11/05/2021 12:08 AM TRANSPORT RN) Only the most recent of2 resultswithin the time period is included. Anatomical Region Laterality Modality Chest Radiographic [place] 11/05/2021 10:0 4 AM TRANSPORT RN Narrative 11/05/2021 10:04 AM TRANSPORT RN Portable AP chest INDICATION: Chest pain and abdominal pain COMPARISON: 04/27/2021 FINDINGS: Clear lungs. Normal heart size. No pneumothorax or pleural effusion. *Reading Radiologist: Teofilo Ovalles on 11/05/2021 at 10:04 AM Procedure Note Teofilo Ovalles MD - 11/05/2021 Portable AP chest INDICATION: Chest pain and abdominal pain COMPARISON: 04/27/2021 FINDINGS: Clear lungs. Normal heart size. No pneumothorax or pleural effusion. *Reading Radiologist: Teofilo Ovalles on 11/05/2021 at 10:04 AM Jamar Patton MD DIAGNOSTIC IMAGING ORDERABLES * (ABNORMAL) URINE MICROSCOPIC ONLY (11/04/2021 11:20 PM TRANSPORT RN) Only the most recent of2 resultswithin the time period is included. RBC UA 11-20(A) None Seen, 0-2, 3-5 # /hpf 11/04/2021 11:55 PM TRANSPORT RN [facility] WBC UA 21-50(A) None Seen, 0-5 # /hpf 11/04/2021 11:55 PM TRANSPORT RN [facility] Bacteria UA Trace(A) None Seen 11/04/2021 11:55 PM TRANSPORT RN [facility] Squamous Epithelial Cells 6-10(A) None Seen, 0-2, 3-5 /hpf 11/04/2021 11:55 PM TRANSPORT RN [facility] Mucus UA 3+ /LPF 11/04/2021 11:55 PM TRANSPORT RN [facility] Urine URINE SPECIMEN OBTAINED BY CLEAN CATCH PROCEDURE / Unknown Collection / Unknown 11/04/2021 11:20 PM TRANSPORT RN 11/04/2021 11:24 PM TRANSPORT RN Narrative [facility] - 11/04/2021 11:55 PM TRANSPORT RN Jamar Patton MD LAB - URINALYSIS O RDERABLES Performing Organization Address City/[facility]/ZIP Co de Phone Number [facility] [address] [phone] * HCG URINE QUALITATIVE - POCT (IP) INTERFACED (10/31/2021 6:54 AM TRANSPORT RN) HCG Qual Urine Negative Negative 10/31/2021 6:59 AM TRANSPORT RN [facility] Urine URINE / Unknown 10/31/2021 6 :54 AM TRANSPORT RN 10/31/2021 6:59 AM TRANSPORT RN Rafa Peres MD LAB - POINT OF CARE ORDERABLES Performing Organization Address [facility] Co de Phone Number [facility] [address] [place] [phone] * HCG URINE QUAL POCT NOTIFICATION (10/31/2021 6:43 AM TRANSPORT RN) Comment Notification Label Only - See Separate Report 10/31/2021 8:00 AM TRANSPORT RN [facility] Urine URINE / Unknown 10/31/2021 6 :43 AM TRANSPORT RN 10/31/2021 6:47 AM TRANSPORT RN Rafa Peres MD LAB - URINALYSIS ORD ERABLES Performing Organization Address City/[facility]/ZIP Co de Phone Number [facility] [address] [phone] * URINE MICROSCOPIC ONLY REFLEX TO CULTURE (09/10/2021 9:53 AM CDT) Reflex Status Culture not indicated 09/10/2021 10:11 AM CDT [facility] RBC UA 0-2 None Seen, 0-2, 3-5 # /hpf 09/10/2021 10:11 AM CDT [facility] WBC UA 0-5 None Seen, 0-5 # /hpf 09/10/2021 10:11 AM CDT [facility] Bacteria UA None Seen None Seen 09/10/2021 10:11 AM [facility] Squamous Epithelial Cells 3-5 None Seen, 0-2, 3-5 /hpf 09/10/2021 10:11 AM [facility] Urine URINE SPECIMEN OBTAINED BY CLEAN CATCH PROCEDURE / Unknown Collection / Unknown 09/10/2021 9:53 AM CDT 09/10/2021 10:03 AM CDT Narrative [facility] - 09/10/2021 10:11 AM CDT Rolando Sheehan PA-C LAB - URINALYSIS ORD ERABLES [facility] [address] [place] [address] * (ABNORMAL) URINALYSIS REFLEX MICROSCOPIC REFLEX CULTURE (09/10/2021 9:53 AM CDT) Color UA Yellow Straw, Yellow 09/10/2021 10:08 AM [facility] Clarity UA Clear Clear 09/10/2021 10:08 AM [facility] Glucose UA Negative Negative 09/10/2021 10:08 AM [facility] Bilirubin UA Negative Negative 09/10/2021 10:08 AM [facility] Ketone UA Negative Negative 09/10/2021 10:08 AM [facility] Specific [place] UA 1.013 1.005 - 1.030 09/10/2021 10:08 AM [facility] Blood UA 2+(A) Negative 09/10/2021 10:08 AM [facility] pH UA 7.0 5.0 - 8.0 pH 09/10/2021 10:08 AM [facility] Protein UA Negative Negative 09/10/2021 10:08 AM [facility] Urobilinogen UA Negative Negative mg/dL 09/10/2021 10:08 AM [facility] Nitrite UA Negative Negative 09/10/2021 10:08 AM [facility] Leukocyte UA Negative Negative 09/10/2021 10:08 AM [facility] Urine Microscopy Urine microscopy to follow 09/10/2021 10:08 AM [facility] Reflex Status Culture not indicated 09/10/2021 10:08 AM CDT [facility] Urine URINE SPECIMEN OBTAINED BY CLEAN CATCH PROCEDURE / Unknown Collection / Unknown 09/10/2021 9:53 AM CDT 09/10/2021 10:03 AM CDT Narrative [facility] - 09/10/2021 10:08 AM CDT Rolando Sheehan PA-C LAB - URINALYSIS ORD ERABLES [facility] [address] [place] [address] * SARS-COV-2 (COVID-19) IN HOUSE (04/27/2021 2:36 AM CDT) COVID-19 PCR Not detected Not detected 04/27/2021 8:14 AM CDT [facility] Microbiology SPECIMEN FROM NASOPHARYNGEAL STRUCTURE / Unknown Collection / Unknown 04/27/2021 2:36 AM CDT 04/27/2021 2:41 AM CDT Narrative [facility] - 04/27/2021 8:14 AM CDT This nucleic acid amplification assay performance was validated by [facility]. This test has been authorized by the Food and Drug administration (FDA)under an Emergency Use Authorization (EUA). This test has been validated in accordance with the FDA's guidance document Policy for Diagnostic Testing in Laboratories Certified to perform High Complexity Testing under CLIA prior to Emergency Use Authorization for Coronavirus Disease-2019 during the Public Health Emergency issued on January 30, 2020. FDA independent review of this validation is pending. This test is only authorized for the duration of time the declaration that circumstances exist justifying the authorization of emergency use of in vitro diagnostic tests for detection of SARS-CoV-2 virus and/or diagnosis of COVID-19 infection under section 564(b)(1) of the Act, 21 U.S.C 360bbb-3 (b)(1), unless the authorization is terminated or revoked sooner. Fact Sheets for this EUA assay are available upon request. Zain Wolff MD LAB - MICROBIOLOGY O MAHENDRA [facility] [address] [place] [address] [phone] * INFLUENZA A+B ANTIGEN RAPID (04/27/2021 2:36 AM CDT) Influenza A Antigen Negative Negative 04/27/2021 2:56 AM CDT [facility] Influenza B Antigen Negative Negative 04/27/2021 2:56 AM CDT [facility] Microbiology SPECIMEN FROM NASOPHARYNGEAL STRUCTURE / Unknown Collection / Unknown 04/27/2021 2:36 AM CDT 04/27/2021 2:41 AM CDT Narrative [facility] - 04/27/2021 2:56 AM CDT The sensitivity of rapid tests for influenza A and B antigens, according to the published reports , ranges from 30-70% when compared to PCR and viral culture. For H1N1 influenza A, the sensitivity varies from 30-50%. For other influenza A strains, the sensitivity ranges from 50-70%. For influenza B virus, the sensitivity is approximately 30%. A negative result does not exclude influenza infection. False-positive (and true-negative) influenza test results are more likely to occur when disease prevalence is low, which is generally at the beginning and end of the influenza season. False-negative (and true-positive) influenza test results are more likely to occur when disease prevalence is high, which is typically at the height of the influenza season. Zain Wolff MD LAB - MICROBIOLOGY O MAHENDRA [facility] [address] [place] [address] * HCG URINE QUALITATIVE (03/17/2021 8:17 PM CDT) Pathologist [facility] hCG Qualitative Urine Negative Negative 03/17/2021 8:34 PM CDT [facility] Urine URINE / Unknown Collection / Unknown 03/17/2021 8:17 PM CDT 03/17/2021 8:21 PM CDT Zain Wolff MD LAB - URINALYSIS ORD ERABLES [facility] [address] [address]
--- OUTSIDE RECORDS SUMMARY | 2025-01-26 08:28 | XMS_ITS | Clinical Summary ---
Author Organization [facility] [employer] Address [address] [place] [address] Care Team Providers Care Aircraft Engine Installer Name Role Phone Unavailable Primary Care Provider Unavailabl e Source Comments [facility] [employer],non-owned Affiliates and Associated Physician Practices is amultiple site organization consisting of ambulatory clinics and hospital sitesin [place], [place], [place] and [place]. This disclosure is being madepursuant to the Care Everywhere program and may not contain all information available regarding this patient. Last updated 18.[facility] [employer] Allergies Active Allergy Reactions Criticality Noted Date Comments Amoxicillin Rash Medium 03/17/2021 Penicillins Rash Medium 03/17/2021 Medications * Be aware that medications may not be up to date on this document. Alwaysverify current medications with the patient. Medication Sig Dispensed Refills Start Date End Date Status acetaminophen (TYLENOL) 500 MG capsule Take 1 (one) capsule by mouth every 4 hours as needed for Pain 30 capsule 03/17/2021 Active omeprazole (PRILOSEC) 10 MG capsule Take 1 (one) capsule by mouth daily before breakfast 20 capsule 09/10/2021 Active pantoprazole EC (PROTONIX) 40 MG tablet Take 1 (one) tablet by mouth once daily 30 tablet 11/05/2021 Active famotidine (PEPCID) 20 MG tablet Take 1 (one) tablet by mouth once daily 20 tablet 11/05/2021 Active metoclopramide (REGLAN) 10 MG tablet Take 1 (one) tablet by mouth 3 times daily before meals 21 tablet 01/09/2022 Active HYDROcodone-acetami nophen (NORCO) 5-325 MG tablet Take 1 (one) tablet by mouth every 6 hours as needed for Pain 7 tablet 02/02/2022 Active ondansetron, disintegrating, (ZOFRAN ODT) 4 MG tablet Take 1 (one) tablet by mouth every 6 hours as needed for Nausea/Vomiting 12 tablet 02/02/2022 Active Social History Tobacco Use Types Packs/Day Years [...] Mass Index 27.46 07/04/2022 12:37 PM CDT Plan of Treatment Health Maintenance Due Date Last Done Comments PAP SMEAR 1996 HIV SCREENING 2011 HEPATITIS C SCREENING 04/17/2014 DTAP/TDAP/TD VACCINES (1 - Tdap) 2015 HEPATITIS B VACCINE (1 of 3 - 19+ 3-dose series) 2015 COVID-19 VACCINE ( - 2023-2 5 season) 2024 INFLUENZA VACCINE (#1) 2024 11/14/2020 DEPRESSION SCREENING 12/02/2024 ZOSTER VACCINE (1 of 2) 2046 HIB VACCINE Aged Out No longer eligi ble based on patient's age to complete this topic HPV VACCINE Aged Out No longer eligi ble based on patient's age to complete this topic MENINGOCOCCAL (Group B) VACCINE Aged Out No longer eligible based on patient's age to complete this topic MENINGOCOCCAL VACCINE Aged Out No jevon emma eligible based on patient's age to complete this topic PNEUMOCOCCAL VACCINE Aged Out No long er eligible based on patient's age to complete this topic
--- OUTSIDE RECORDS SUMMARY | 2025-01-26 08:28 | XMS_ITS | Continuity of Care Document ---
Author Organization [facility] Address [address] [place] [address] Phone Care Team Providers Care Supervisor Vendor Quality Name Role Phone Unavailable Unavailable Unavailable Advance Directives Directive Yes / No Effective Date File Name No Information Encounters Encounter Description Practice Location Reason(s) For Visit Diagnoses Date Provider Providers Copied on Encounter [facility], [address], [place], [place], [id number], [place] tel:[phone] [facility] IN[facility] No Information No Information Referring Provider: REFERRAL SELF. Family History Family Member Type Diagnosis Age At Onset No Information Payers Payer name Insurance type Covered green party ID Authoriza tion(s) No Information Social History Type Description Quantity Date Captured Comments Sex Female Smoking Status No Information Chief Complaint And Reason For Visit No Information History Of Present Illness Encounter Date Complaint History Of Prese nt Illness No Information Instructions Date Instruction Additional Infor mation No Information Assessments Type Assessment Date No Information
--- OUTSIDE RECORDS SUMMARY | 2025-01-26 08:28 | XMS_ITS | Referral Summary ---
Author Organization [facility] [employer] Address [address] [place] [address] Care Team Providers Care Guest Room Inspector Name Role Phone Unavailable Primary Care Provider Unavailabl e Source Comments [facility],non-owned Affiliates and Associated Physician Practices is amultiple site organization consisting of ambulatory clinics and hospital sitesin [place], [place], [place] and [place]. This disclosure is being madepursuant to the Care Everywhere program and may not contain all information available regarding this patient. Last updated 18.[facility] [employer] Allergies Active Allergy Reactions Criticality Noted Date [...] 07/04/2022 12:37 PM CDT Plan of Treatment Not on file
[2025-01-26 08:30] VITALS: BP 102/69; PULSE 74; RESP 16; O2SAT 97
[2025-01-26 09:30] VITALS: BP 103/65; PULSE 72; RESP 98; O2SAT 16
--- NOTE | 2025-01-26 09:40 | PC.NURSE ---
Patient updated on status of care. Waiting on Surgeon to call back for further treatment advisement.
--- NOTE | 2025-01-26 10:18 | PC.NURSE ---
taping supervisor Kelly called back, states Dr. Paulino is in surgery currently and will call when out.
--- NOTE | 2025-01-26 10:20 | PC.NURSE ---
Patient is aware, Surgeon is in surgery at this time. Waiting on his call back for further treatment.
[2025-01-26 10:30] VITALS: BP 100/61; PULSE 67; RESP 16; O2SAT 98
[2025-01-26 11:30] VITALS: BP 95/59; PULSE 69; RESP 17; O2SAT 99
--- NOTE | 2025-01-26 11:48 | PC.NURSE ---
Per warehouse supervisor 3rd shift Dinorah, Dr. Tavares is still in surgery, Patient and ERP is aware.
[2025-01-26 12:27] VITALS: BP 104/72; PULSE 81; RESP 17; TEMP 36.7; O2SAT 99
--- NOTE | 2025-01-26 12:53 | PC.NURSE ---
[facility] REPORTING PT IS ALLERGIC TO PENICILLIN, ERP ORDERED RX FOR AUGMENTIN. ERP IS NOTIFIED HE ORDERS LEVAQUIN 500MG PO DAILY X 7 DAYS, NO REFILLS. PHARMACIST IS AWARE.
== END 2025-01-26 12:27 | disposition home or self-care (01) ==
PROVIDERS: Emergency Provider Emergency Medicine
DX: K80.20 Calculus of gallbladder without cholecystitis without obstruction (principal); K80.50 Calculus of bile duct without cholangitis or cholecystitis without obstruction
CPT/HCPCS: 36415; 76705; 80053; 81003; 81025; 83690; 85025; 99284

== ENCOUNTER 2025-02-08 01:12 | Day surgery (SDC) | payer OTHER, SELFPAY ==
[2025-02-02 10:31] VITALS: BMI 31.8
--- NOTE | 2025-02-02 10:45 | PC.NURSE ---
Report to the Outpatient Waiting Room, entrance under the green pavilion located off [facility], at time _10AM___ on date _02/08/25 . Planned Procedure Time: _12AM__.? Time changes happen often and if your time is changed the preop area will call you the afternoon before. - You and your visitor will be asked to self-screen and do not enter if you have any COVID symptoms. Please call surgeon if you need to reschedule. - A mask is optional within the hospital at this time. Patients may have clear liquids (water, carbonated beverages, clear teas, apple juice) until 3 hours prior to surgery with a maximum of 20 ounces. - No food from midnight until time of surgery and no smoking, or chewing tobacco (or any form of nicotine). No chewing gum, candy or mints. Take only the following medications with a SIP of water on the morning of surgery: _ZOFRAN OR PAIN PILL IF NEEDED DO NOT STOP ANY OF YOUR OTHER PRESCRIPTION MEDICATIONS PRIOR TO SURGERY EXCEPT THE FOLLOWING Hold all vitamins and supplements for 3 days per anesthesiologist. Medications to discontinue per physician Date to take last dose Please no make-up, nail latvian, hairspray, perfume, deodorant, or body powder the day of surgery.? No jewelry (including any body piercings) or valuables the day of surgery, leave them at home.? Please take a shower or bath the night before, or the morning of, surgery with an antibacterial soap.? Wear comfortable, loose fitting clothing.? - Jewelry must be removed prior to entering the operating room.? Rings and piercings that are not removed may be cut off. - The hospital will not accept responsibility for valuables.? - Please leave all valuables, including medications, at home the day of surgery. If you are going home after surgery, a licensed commercial relief driver must drive you home.? - NO public transportation without another adult if you receive anesthesia. - We recommend that an adult stay with you for 24 hours following discharge. - We also recommend that you do not drive, make important decision, drink alcoholic beverages, or take any drugs that were not prescribed by your health care provider for at least 24 hours after your discharge time. Follow any additional instructions given to you from your surgeon. Telephone instructions given to _VIGNESH and asked if any additional questions and then verbalized understanding. Patient advised to call surgeon office or pre surgery nurse liaison [phone] if any additional questions.
[2025-02-08] VITALS (8 sets, daily range): BP systolic 103–120; BP diastolic 55–74; PULSE 60–93; RESP 12–18; TEMP 37.1–37.6; O2SAT 97–99
--- OUTSIDE RECORDS SUMMARY | 2025-02-08 01:17 | XMS_ITS | Encounter Summary ---
Author Organization [facility] Address [facility] [place] [address] Care Team Providers Care Peel Oven Tender Name Role Phone None, Provider MD Primary Care Provider Unavaila ble Encounter Details Date Type Department Care Team (Late st Contact Info) Description 11/17/2020 Hospital Follow-up Call [facility] [place] [address] Toya Mejia, RN Social History Tobacco Use Types [...] on file Legal Sex Female 5:54 PM HONING MACHINE OPERATOR Gender Identity Not on file Sexual Orientation Not on file COVID-19 Exposure Response Date Recorded In the last month, have you been in contact with someone who was confirmed or suspected to have Coronavirus / COVID-19? No / Unsure 11/12/2020 8:13 PM HONING MACHINE OPERATOR documented as of this encounter Functional Status * RETIRED Are you deaf or do you have serious difficulty hearing Answer Date of Assessment Author Status No 11/12/2020 9:38 PM HONING MACHINE OPERATOR Activ e * RETIRED Are you blind or do you have serious difficulty seeing, even when wearing glasses? Answer Date of Assessment Author Status No 11/12/2020 9:38 PM HONING MACHINE OPERATOR Activ e * Do you have serious difficulty walking or climbing stairs? Answer Date of Assessment Author Status No 11/12/2020 9:38 PM HONING MACHINE OPERATOR Mandy Arroyo RN A ctive * Do you have difficulty dressing or bathing? Answer Date of Assessment Author Status No 11/12/2020 9:38 PM HONING MACHINE OPERATOR Mandy Arroyo RN A ctive * Because [...] on filedocumented in this encounter Care Teams Peel Oven Tender Relationship Specialty Start Date End Date None, Provider, PCP - General 10/20/20 documented as of this encounter
--- OUTSIDE RECORDS SUMMARY | 2025-02-08 01:17 | XMS_ITS | Data Portability ---
Author Organization [facility] JUDYJared Address [address] [place] [address] Care Team Providers Care Lead Software Development Engineer Name Role Phone TIFFANIE LINO Primary Care [...] DO Not Attach Compendium, Do Not Delete/merge, [id number] 4 12:42:[address] referral 2023 024 dteldon Maki MEMBERSHIP ADVISOR, [address] , [facility] [address], [place], [address], 4 08:55:25 Procedures None recorded. Surgeries None recorded. Imaging None recorded. Medication Orders azithromyc in 500 [address] [facility] [address] [place], [address], 4 10:31:26 buspirone 10 mg tablet [address] [facility] [address] [place], [address], 3 15:42:50 Patient TargetsNo targets recorded. Patient Instructions Encounter Date Encounter Id Patient Instructions Last Modified By Organization Details Last Modified Time 09/19/2023 [id number] A healthy lifestyle: care instructions jnanney Not available 09/19/2023 10:29:39 04/30/2024 [id number] A healthy lifestyle: care instructions jnanney Not [...] DO Not Attach Compendium, Do Not Delete/merge, [id number] 03/23/2024 12:23:21 03/23/20 24 03/23/2024 influ jeremy virus A + B + SARS- CoV-2 (COVI D19) Ag panel , rapid IA, upper respi rator y speci men Flu B negati ve Not Available In-Office Order Internal Use Only DO Not Attach Compendium DO Not Attach Compendium, Do Not Delete/merge, [id number] 03/23/2024 12:23:21 03/23/20 24 03/23/2024 influ jeremy virus A + B + SARS- CoV-2 (COVI D19) Ag panel , rapid IA, upper respi rator y speci men Rapid SARS CoV 2 Ag, QL IA, respiratory specimen negati ve Not Available In-Office Order Internal Use Only DO Not Attach Compendium DO Not Attach Compendium, Do Not Delete/merge, [id number] 03/23/2024 12:23:21 10/17/20 23 10/17/2023 CT, abdom en + pelvi s, w/o contr ast No observ ation record ed. [facility] [address] [place], [address], 10/17/2023 16:36:19 Result Notes None recorded. Problems No Known Problems Procedures Surgical History Date Name Laterality Status Provider Name and Address Organization Details Recorded Time section completed Nelida Suero MA [facility] 09/25/2022 14:06:05 repair of heart completed Nelida Suero MA [facility] 09/25/2022 14:05:42 Imaging Results Imaging Date Name Status LastModified by Organiz [facility] Details LastModified Time 10/17/2023 CT, abdomen + pelvis, w/o contrast completed [facility] [address] [place], [address], 10/17/2023 16:36:19 Procedure Notes None recorded. Medical Equipment None Reported. Allergies Allergen ID Allergen Name Allergen Category Reaction Reaction Severity Criticality Documentation Date Start Date Code Code System Note Provider Name and Address Organization Details Recorded Time 080651 Product containin g penicilli n (product) medicatio n Not available Not available Not available 09/25/2022 62762 8001 SNOMED Not Available Not Available Not Available 684634 amoxicill in medicatio n Not available Not [...] Updated DateTime 3 157.48 cm 33.1 kg/m2 07086.2 2 g 16 /min 97 % 97 [...] Updated DateTime 3 157.48 cm 33.3 kg/m2 39991.8 1 g 16 /min 98 % 98 % 91 /min 111 mm[Hg] 77 mm[Hg] Leanne Webb MA [facility] 3 15:45:10 Date Recorded Body height Body mass index (BMI) Body weight Oxygen saturation Oxygen saturation in Arterial blood by Pulse oximetry Heart rate Systolic blood pressure Diastolic blood pressure Provider Name and Address Organization Details Last Updated DateTime 4 157.48 cm 33.3 kg/m2 04861.5 1 g 99 % 99 % 85 /min 108 mm[Hg] 74 mm[Hg] Leanne Webb MA [facility] 4 17:06:57 Date Recorded Body height Body mass index (BMI) Body weight Systolic blood pressure Diastolic blood pressure Provider Name and Address Organization Details Last Updated DateTime 03/23/2024 157.48 cm 33 kg/m2 11840.73 g 104 mm[Hg] 70 mm[Hg] Leanne Webb MA [facility] 4 12:04:13 Date Recorded Body height Heart rate Oxygen saturation Oxygen saturation in Arterial blood by Pulse oximetry Body mass index (BMI) Body weight Systolic blood pressure Diastolic blood pressure Provider Name and Address Organization Details Last Updated DateTime 4 157.48 cm 69 /min 97 % 97 % 32.6 kg/m2 47994.4 4 g 110 mm[Hg] 60 mm[Hg] Leanne Webb MA [facility] 4 10:33:51 Social History Question Answer Notes LastModified by Organizat ion Details LastModified Time Tobacco Smoking Status Never Smoker Nelida Suero MA [facility] 09/25/2022 14:04:16 What Is Your Level Of [...] Anxious, Or Unable To Sleep At Night)? [id number] Information not available 09/25/2022 Do You Use [...] History Condition Response Coronary Artery Disease N Depression N COPD N Blood Clots N Anxiety Disorder N Acid Reflux (GERD) N Stroke N Eating Disorder N Skin Problems N Asthma N Substance Abuse N Liver Disease N Schizophrenia N Thyroid Problems N GI Problems N Anemia N Heart Attack ([place]) N Diabetes N Heart Failure N Other N Atrial Fibrillation N High Blood Pressure N Muscle, Joint, or Bone Problems N Cancer N Headaches N Kidney or Bladder Problems N Allergies N Hepatitis N ADHD N High Cholesterol N Seizures/Epilepsy N Osteoporosis N Gynecological History Statement/Question Response Date of Last Pap Smear Current Control Method None Date of LMP 03/23/2024 LMP Approximate Obstetrics History GPAL:G 0 P 0 0 0 0 Immunizations Vaccine Type Date Status Note Provider Nam e and Address Organization Details Recorded Time Influenza, split virus, quadrivalent, PF 11/14/2020 completed Not [facility] 16:06:14 Past Encounters Encounter ID Performer Location Encounter Start Date Encounter Closed Date Diagnosis/Indication Diagnosis SNOMED-CT Code Diagnosis ICD10 Code Diagnosis Note [id number] [place] Brito [address] [place] [address] 09/25/2022 13:46:24 09/26/2022 09:32:29 Mixed anxiety and depressive disorder 891053195 F41.8 Long-term drug therapy 979143076 Z79.346 [id number] Tiffanie Lino PA-C [facility] [address] [place] [address] 12/06/2022 11:08:57 12/06/2022 11:41:23 Generalized aches and pains 72907826 R52 Suspected COVID-19 07599 4004 Z20.822 Overweight 417238493 E66 .3 Obesity 964708637 E66.9 [id number] Tiffanie Lino PA-C [facility] [address] [place] [address] 01/31/2023 11:38:02 02/01/2023 09:56:42 Salguero's neuroma of right foot 5841111003 93508 G57.61 Amenorrhea 80595151 N91. 0 Overweight 765216821 E66 .3 [id number] Tiffanie Lino PA-C [facility] [address] [place] [address] 07/26/2023 11:19:13 07/29/2023 12:31:11 Mixed anxiety and depressive disorder 856261791 F41.8 [id number] Tiffanie Lino PA-C [facility] [address] [place] [address] 09/19/2023 09:53:29 09/27/2023 14:15:03 Mixed anxiety and depressive disorder 591361615 F41.8 Overweight 698025533 E66 .3 [id number] Tiffanie Lino PA-C [facility] [address] [place] [address] 11/13/2023 15:37:47 11/19/2023 16:01:21 Migraine without aura 69287435 G43.555 [id number] Tiffanie Lino PA-C [facility] [address] [place] [address] 02/07/2024 16:58:14 02/10/2024 17:02:17 Mixed anxiety and depressive disorder 896971063 F34.1 [id number] [place] [facility] [address] [place] [address] 03/23/2024 11:50:54 03/24/2024 10:45:34 Nasal congestion 70408936 R09.81 Acute maxi llary sinusitis 19045860 J01.01 [id number] Tiffanie Lino PA-C [facility] [address] [place] [address] 04/30/2024 10:23:09 05/01/2024 16:57:09 Impacted cerumen in right ear [id number] 719088 H61.21 Overweight 749986092 E66 .3 Health Concerns Section Related Observation [...] the day... Tiffanie Lino PA-C Attn: Accounting,[address] [place], [address], [place] [facility] 09/19/2023 10:31:46 11/13/2023 text/html has been on lexapro for months...buspiro ne added in september...said she got a migraine chills diarrhea...was in [place] at the time...quit lexapro and slowed the buspirone....fee ls better now...felt like a migraine... Tiffanie Lino PA-C Attn: Accounting,[address] [facility], [place], [address], [facility] 11/13/2023 16:33:16 02/07/2024 text/html stress..trouble focusing...brain wont stop rolling ...both siblings have ADD Tiffanie Lino PA-C Attn: Accounting,[address] [facility], [place], [address], [facility] 02/07/2024 17:23:27 03/23/2024 text/html sore throat bodyaches cough Tiffanie Lino PA-C Attn: Accounting,[address] [place], [address], [facility] 03/23/2024 12:44:40 04/30/2024 text/html Sore throat and [...] similar sx. Tiffanie Lino PA-C Attn: Accounting,[address] [place], [address], [facility] 04/30/2024 11:16:35 OBGyn Episode No OBEpisode recorded.
--- OUTSIDE RECORDS SUMMARY | 2025-02-08 01:17 | XMS_ITS | Clinical Summary ---
Author Organization [facility] Address Formerly [facility] [place] [address] Care Team Providers Care Rn Imcu Name Role Phone None, Provider MD Primary [...] (NAPROSYN) 500 MG tabletIndicatio ns: delivery delivered ([facility]) Take 1 tablet (500 mg total) by [...] on file Legal Sex Female 5:54 PM DIRECTOR SPEECH LANGUAGE Gender Identity Not on file Sexual Orientation Not on file Last Filed Vital Signs Vital Sign Reading Time Taken Comments Blood Pressure 112/65 11/15/2020 8:43 AM DIRECTOR SPEECH LANGUAGE Pulse 67 11/14/2020 8:00 PM DIRECTOR SPEECH LANGUAGE Temperature 36.3 C (97.4 F) 11/15/2020 8:43 AM DIRECTOR SPEECH LANGUAGE Respiratory Rate 16 11/15/2020 8:43 AM DIRECTOR SPEECH LANGUAGE Oxygen Saturation 100% 11/15/2020 8:43 AM DIRECTOR SPEECH LANGUAGE Inhaled Oxygen Concentration - - Weight 70.3 kg (155 lb) 11/12/2020 6:49 PM DIRECTOR SPEECH LANGUAGE Height 157.5 cm (5' 2 ) 11/12/2020 6:49 PM DIRECTOR SPEECH LANGUAGE Body Mass Index 28.35 11/12/2020 6:49 PM DIRECTOR SPEECH LANGUAGE Plan of Treatment Health Maintenance Due Date [...] patient's age to complete this topic Insurance [facility] Advance Directives * Full Code (Latest Code Status on File) Date Activated Date Inactivated Comments 11/13/2020 8:22 AM 11/15/2020 5:12 PM * Full Code Date Activated Date Inactivated Comments 11/12/2020 8:44 PM 11/13/2020 8:22 AM Care Teams Rn Imcu Relationship Specialty Start Date End Date None, Provider, PCP - General 10/20/20
--- OUTSIDE RECORDS SUMMARY | 2025-02-08 01:17 | XMS_ITS | Clinical Summary ---
Author Organization [facility] Address [address] [place] [address] Phone Care Team Providers Care Supervisor Road Administrator Name Role Phone Lore Roque MD Primary Care Provider [phone] Allergies Active Allergy Reactions Criticality Noted Date Comments Amoxicillin Unknown 09/17/2024 Penicillin G Unknown 09/17/2024 Medications ondansetron (ZOFRAN) 4 MG Tablet Take 1-2 Tablets by mouth every 8 hours as needed for Nausea - 1st line. 10 Tablet 09/17/2024 Active traZODone (DESYREL) 100 MG TabletIndicatio ns:Anxiety and depression Take 1 Tablet by mouth nightly for 360 days. 90 Tablet 3 12/15/2024 Active Active Problems No known active problems Encounters Date Type Department Care Team Description [facility] [address] [place] [address] Sienna White, HOSPITAL PHARMACIST 12/15/2024 3:30 PM VETERINARY MEAT INSPECTOR Office Visit [facility] - Primary Care - [place] [address] [place] [address] Lore Roque MD [facility] amberly, initial encounter (Primary Dx); Bilateral otitis media with effusion; Anxiety and depression Discharge Disposition: Discharged to home or Selfcare 12/15/2024 Travel 12/09/2024 Patient Outreach [facility] [address] [place] [address] Yuliya Mckay Care Management (Weekly monitoring call-(Week 4)) 11/30/2024 2:00 PM VETERINARY MEAT INSPECTOR Office Visit [facility] - Primary Care - [address] [address] Lakshmi Biggs APRN, TRANSPORTATION MUSEUM HELPER Intractable headache, unspecified chronicity pattern, unspecified headache type (Primary Dx); Viral upper respiratory tract infection Discharge Disposition: Discharged to home or Selfcare 11/30/2024 Travel 11/27/2024 Patient Outreach [facility] [address] [place] [address] [phone] Yuliya Mckay Care Management (Bi-weekly monitoring-(Week 2)) 11/19/2024 Telephone [facility] [address] [place] [phone] Lore Roque MD Advice Only 11/19/2024 Patient Outreach [facility] [address] [place] [phone] Yuliya Mckay Care Management (Weekly monitoring call-(Week 1)) 11/13/2024 Telephone [facility] [address] [place] [phone] Lore Roque MD Results (Labs ) 11/12/2024 Patient Outreach [facility] [address] [place] [address] [phone] Emilee Hurtado LSW Care Management (SW assessment) 11/10/2024 Nurse Triage [facility] [address] [place] [phone] Lore Roque MD Urinary Problem; Vaginal Bleeding from Last 3 Months Immunizations Immunization Administration Dates Next Due Influenza Vaccine, Quadrivalent, PF 11/14/2020 Influenza,Split Virus,Trivalent,Injectable,PF Social History Tobacco Use Types Packs/Day Years Used Date Smoking Tobacco: Never Smokeless Tobacco: Never Alcohol Use Standard Drinks/Week Comments Yes 0 (1 standard drink = 0.6 oz pur e alcohol) Occasionally [facility] Utilities Answer Date Recorded In the past 12 months has th e electric, gas, oil, or water company threatened to shut off services in your [...] often do you attend chur ch or methodist services? Never 11/12/2024 Do you belong to any clubs o r organizations such as confucianism groups, unions, fraternal or athletic groups, or [...] Total Score - Questions 1-9 5 12/02 [facility] [place] of Occupat ional Health - Occupational Stress [...] any time in the past 12 m [facility], were you homeless or living in a retirement (including now)? No 11/12/2024 Sexually Active Control Partners Comments Yes Male Comments No Sex and Gender Information Value Date Recorded Sex Assigned at Not on file Legal Sex Female 8:52 AM CDT Gender Identity Not on file Sexual Orientation Not on file Last Filed Vital Signs Vital Sign Reading Time Taken Comments Blood Pressure 94/70 12/15/2024 3:42 PM VETERINARY MEAT INSPECTOR Pulse 63 12/15/2024 3:42 PM VETERINARY MEAT INSPECTOR Temperature 36.6 C (97.9 F) 12/15/2024 3:42 PM VETERINARY MEAT INSPECTOR Respiratory Rate 14 12/15/2024 3:42 PM VETERINARY MEAT INSPECTOR Oxygen Saturation 98% 12/15/2024 3:42 PM VETERINARY MEAT INSPECTOR Inhaled Oxygen Concentration - - Weight 78 kg (172 lb) 12/15/2024 3:42 PM VETERINARY MEAT INSPECTOR Height 157.5 cm (5' 2 ) 12/15/2024 3:42 PM VETERINARY MEAT INSPECTOR Body Mass Index 31.46 12/15/2024 3:42 PM VETERINARY MEAT INSPECTOR Plan of Treatment Health Maintenance Due Date Last Done Comments Hepatitis C Virus (HCV) Screening 1996 TdaP Immunization 1996 Hepatitis B Immunization (1 of 3 - 19+ 3-dose series) 2015 Pap Smear 2017 SARS-COV-2 Immunization (2023-25 season) 2024 Respiratory Syncytial Virus (RSV) Immunization [...] SARS-COV-2 BY MOLECULAR Routine 11/30/2024 2:10 PM VETERINARY MEAT INSPECTOR Intractable headache, unspecified chronicity pattern, unspecified headache type POC INFLUENZA A AND B BY MOLECULAR Routine 11/30/2024 2:10 PM VETERINARY MEAT INSPECTOR Intractable headache, unspecified chronicity pattern, unspecified headache type from Last 3 Months Results * POC SARS-COV-2 BY MOLECULAR (11/30/2024 2:10 PM VETERINARY MEAT INSPECTOR) SARSCOV2 Negative Negative, INVALID PROCEDURE CONTROL Valid 11/30/2024 2:10 PM VETERINARY MEAT INSPECTOR Lakshmi Biggs APRN, CNP POINT OF CARE TESTING ([facility]) Final Result * POC INFLUENZA A AND B BY MOLECULAR (11/30/2024 2:10 PM VETERINARY MEAT INSPECTOR) INFLUENZA A RNA Negative Negative, Invalid INFLUENZA B RNA Negative Negative, Invalid PROCEDURE CONTROL Valid 11/30/2024 2:10 PM VETERINARY MEAT INSPECTOR Lakshmi Biggs APRN, CNP POINT OF CARE TESTING ([facility]AL) Final Result from Last 3 Months Insurance [employer] [facility] Care Teams Supervisor Road Administrator Relationship Specialty Start Date End Date Lore Roque MD [address] [place] [address] PCP - General Family Medicine 11/09/24
--- OUTSIDE RECORDS SUMMARY | 2025-02-08 01:17 | XMS_ITS | Referral Summary ---
Author Organization [facility] Address [address] [place] [address] Care Team Providers Care Medical Center Representative Name Role Phone Unavailable Primary Care Provider Unavailabl e Source Comments [facility],non-owned Affiliates and Associated Physician Practices is amultiple site organization consisting of ambulatory clinics and hospital sitesin [place], [place], [place] and [place]. This disclosure is being madepursuant to the Care Everywhere program and may not contain all information available regarding this patient. Last updated 18.[facility] Allergies Active Allergy Reactions Criticality Noted Date [...]
--- OUTSIDE RECORDS SUMMARY | 2025-02-08 01:17 | XMS_ITS | Continuity of Care Document ---
Author Organization [facility] Address [address] [place] [address] Phone Care Team Providers Care Pediatric Clinical Nurse Specialist Name Role Phone Unavailable Unavailable Unavailable Advance Directives Directive Yes / No Effective Date File Name No Information Encounters Encounter Description Practice Location Reason(s) For Visit Diagnoses Date Provider Providers Copied on Encounter [facility], [address] [facility], [place], [place], [id number], [place] tel:[phone] [facility] INPATIENT No Information No Information Referring Provider: REFERRAL SELF. Family History Family Member Type Diagnosis Age At Onset No Information Payers Payer name Insurance type Covered republican ID Authoriza tion(s) No Information Social History Type Description Quantity Date Captured Comments Sex Female Smoking Status No Information Chief Complaint And Reason For Visit No Information History Of Present Illness Encounter Date Complaint History Of Prese nt Illness No Information Instructions Date Instruction Additional Infor mation No Information Assessments Type Assessment Date No Information
--- OUTSIDE RECORDS SUMMARY | 2025-02-08 01:17 | XMS_ITS | Patient Health Summary ---
Author Organization [facility] Address [address] [place] [address] Care Team Providers Care Bolt Sawyer Name Role Phone Unavailable Primary Care Provider Unavailabl e Note from [facility],non-owned Affiliates and Associated Physician Practices is amultiple site organization consisting of ambulatory clinics and hospital sitesin [place], [place], [place] and [place]. This disclosure is being madepursuant to the Care Everywhere program and may not contain all information available regarding this patient. Last updated 18.[facility] Allergies * Amoxicillin(Rash) -Medium Criticality * [...] 0.021 <0.038 ng/mL 07/04/2022 5:03 PM CDT [facility] Blood BLOOD SPECIMEN / Unknown Venipuncture / Unknown 07/04/2022 4:40 PM CDT 07/04/2022 4:43 PM CDT Keke Conroy DIRECTOR NEWS-BRAILLE TRANSCRIBER LAB - CHEMI STRY ORDERABLES [facility] [address] [place] [address] * US ABDOMEN LIMITED (07/04/2022 [...] DATE/TIME OF EXAM: 07/04/2022 2:11 PM, LOCATION [facility] INDICATION: Right upper quadrant pain. R07.9: Chest pain, unspecified. ADDITIONAL CLINICAL INFORMATION: Ordering Provider Reason For Exam: Technologist Note: Additional: COMPARISON: None. TECHNIQUE: Real-time ultrasound of the upper abdomen with DICOM image capture performed by medical technologist hematology. FINDINGS: The hepatic echotexture is homogeneous without [...] DATE/TIME OF EXAM: 07/04/2022 2:11 PM, LOCATION [facility] INDICATION: Right upper quadrant pain. R07.9: Chest pain, unspecified. ADDITIONAL CLINICAL INFORMATION: Ordering Provider Reason For Exam: Technologist Note: Additional: COMPARISON: None. TECHNIQUE: Real-time ultrasound of the upper abdomen with DICOM image capture performed by medical technologist hematology. FINDINGS: The hepatic echotexture is homogeneous without [...] MD on 07/04/2022 2:44 PM Keke Conroy DIRECTOR NEWS-BRAILLE TRANSCRIBER US ORDERABL ES * CBC W AUTO DIFFERENTIAL (07/04/2022 1:21 PM CDT) Only the most recent of7 resultswithin the time period is included. WBC 6.9 4.4 - 10.7 x10E9/L 07/04/2022 1:33 PM CDT [facility] WBC Corrected 07/04/2022 1:33 PM CDT [facility] RBC 4.33 3.80 - 5.20 x10E12/L 07/04/2022 1:33 PM CDT [facility] Hemoglobin 12.4 12.0 - 15.6 gm/dL 07/04/2022 1:33 PM CDT [facility] Hematocrit 37.0 35.9 - 45.5 % 07/04/2022 1:33 PM CDT [facility] MCV 85.5 80.7 - 98.3 fl 07/04/2022 1:33 PM CDT [facility] MCH 28.6 26.7 - 34.0 pg 07/04/2022 1:33 PM CDT [facility] MCHC 33.5 30.8 - 35.9 gm/dL 07/04/2022 1:33 PM CDT [facility] Platelet Count 205 153 - 416 x10E9/L 07/04/2022 1:33 PM CDT [facility] RDW-CV 13.6 12.1 - 14.9 % 07/04/2022 1:33 PM CDT [facility] MPV 11.1 9.4 - 12.9 fl 07/04/2022 1:33 PM CDT [facility] Neutrophils % 58.4 44.0 - 73.0 % 07/04/2022 1:33 PM CDT [facility] Lymphocytes % 35.3 20.0 - 43.0 % 07/04/2022 1:33 PM CDT [facility] Monocytes % 5.4 5.0 - 13.0 % 07/04/2022 1:33 PM CDT [facility] Eosinophils % 0.4 0.0 - 6.0 % 07/04/2022 1:33 PM CDT [facility] Basophils % 0.4 0.0 - 2.0 % 07/04/2022 1:33 PM CDT [facility] Immature Granulocytes 0.1 0 - 1 % 07/04/2022 1:33 PM CDT [facility] Neutrophil Absolute 4.02 2.01 - 7.14 x10E9/L 07/04/2022 1:33 PM CDT [facility] Lymphocytes Absolute 2.43 1.07 - 3.94 x10E9/L 07/04/2022 1:33 PM CDT [facility] Monocytes Absolute 0.37 0.26 - 1.07 x10E9/L 07/04/2022 1:33 PM CDT [facility] Eosinophils Absolute 0.03 0 - 0.47 x10E9/L 07/04/2022 1:33 PM CDT [facility] Basophils Absolute 0.03 0 - 0.08 x10E9/L 07/04/2022 1:33 PM CDT [facility] Immature Granulocytes Absolute 0.01 0.00 - 0.06 x10E9/L 07/04/2022 1:33 PM CDT [facility] nRBC Auto 0 /100 WBC 07/04/2022 1:33 PM CDT [facility] Blood BLOOD SPECIMEN / Unknown Venipuncture / Unknown 07/04/2022 1:21 PM CDT 07/04/2022 1:28 PM CDT Keke Conroy APRN-BRAILLE TRANSCRIBER LAB - HEMAT OLOGY ORDERABLES Performing Organization Address City/State/[facility] Co de Phone Number [facility] [address] [place] [address] * (ABNORMAL) COMPREHENSIVE METABOLIC PANEL (07/04/2022 1:21 PM CDT) Only the most recent of7 resultswithin the time period is included. Glucose 89 70 - 105 mg/dL 07/04/2022 1:53 PM CDT [facility] Sodium 139 136 - 145 mmol/L 07/04/2022 1:53 PM CDT [facility] Potassium 4.2 3.5 - 5.1 mmol/L 07/04/2022 1:53 PM CDT [facility] Chloride 111(H) 98 - 107 mmol/L 07/04/2022 1:53 PM CDT [facility] CO2 20(L) 23 - 31 mmol/L 07/04/2022 1:53 PM CDT [facility] Calcium 9.3 8.4 - 10.4 mg/dL 07/04/2022 1:53 PM CDT [facility] Anion Gap 8 8 - 18 mmol/L 07/04/2022 1:53 PM CDT [facility] BUN 11 7 - 18.7 mg/dL 07/04/2022 1:53 PM CDT [facility] Creatinine 0.78 0.57 - 1.11 mg/dL 07/04/2022 1:53 PM CDT [facility] Alkaline Phosphatase 69 40 - 150 U/L 07/04/2022 1:53 PM CDT [facility] ALT 22 0 - 61 U/L 07/04/2022 1:53 PM CDT [facility] AST 23 5 - 34 U/L 07/04/2022 1:53 PM T [facility] Protein Total 7.4 6.4 - 8.3 gm/dL 07/04/2022 1:53 PM T [facility] Albumin 4.5 3.5 - 5.2 gm/dL 07/04/2022 1:53 PM T [facility] Bilirubin Total 0.3 0.2 - 1.2 mg/dL 07/04/2022 1:53 PM [facility] eGFR by CKD-EPI >90 >=90 mL/min/1.7 3 m2 07/04/2022 1:53 PM [facility] Blood BLOOD SPECIMEN / Unknown Venipuncture / Unknown 07/04/2022 1:21 PM CDT 07/04/2022 1:28 PM CDT Keke Conroy APRN-BRAILLE TRANSCRIBER LAB - CHEMI STRY ORDERABLES [facility] [place] [address] * LIPASE BLOOD (07/04/2022 1:21 PM CDT) Only the most recent of7 resultswithin the time period is included. Lipase 38 8 - 78 U/L 07/04/2022 1:53 PM T [facility] Blood BLOOD SPECIMEN / Unknown Venipuncture / Unknown 07/04/2022 1:21 PM CDT 07/04/2022 1:28 PM CDT [facility] - [facility]MI STRY ORDERABLES Performing Organization Address [facility] de Phone Number [facility] [address] [place] [address] * HCG BLOOD QUALITATIVE (07/04/2022 1:21 PM CDT) Only the most recent of5 resultswithin the time period is included. HCG Qual Serum Negative Negative 07/04/2022 1:46 PM CDT [facility] Blood BLOOD SPECIMEN / Unknown Venipuncture / Unknown 07/04/2022 1:21 PM CDT 07/04/2022 1:28 PM CDT Narrative [facility] - 07/04/2022 1:46 PM CDT Specimens containing heterophilic antibodies may demonstrate false positive results. Specimens containing human anti-mouse antibodies may exhibit false positive or false negative results. If qualitative interpretation is inconsistant with clinical evaluation, consider confirmation by an alternative hCG method. [facility] - [facility]MI [facility] ORDERABLES Performing Organization Address [facility] de Phone Number [facility] [address] [place] [address] * XR CHEST PA AND LATERAL (07/04/2022 12:58 PM CDT) Anatomical Region Laterality Modality Chest Radiographic [place] 07/04/2022 1:00 PM CDT Impressions 07/04/2022 1:01 PM CDT IMPRESSION: No consolidation > Interpreting Provider: Zain Saenz MD on 07/04/2022 1:01 PM Narrative 07/04/2022 1:01 PM CDT PROCEDURE: XR CHEST 2VW, DATE/TIME OF EXAM: 07/04/2022 12:58 PM, LOCATION [facility] INDICATION: R07.9: Chest pain, unspecified ADDITIONAL CLINICAL INFORMATION: Ordering Provider Reason For Exam: Technologist Note: Additional: COMPARISON: 11/05/2021 FINDINGS: 2 views of the chest shows accentuated central bronchovascular markings. No peripheral consolidation, pleural effusion, or pneumothorax is present. The heart size is normal. Procedure Note Zain Saenz MD - 07/04/2022 PROCEDURE: XR CHEST 2VW, DATE/TIME OF EXAM: 07/04/2022 12:58 PM, LOCATION [facility] INDICATION: R07.9: Chest pain, unspecified ADDITIONAL CLINICAL INFORMATION: Ordering Provider Reason For Exam: Technologist Note: Additional: COMPARISON: 11/05/2021 FINDINGS: 2 views of the chest shows accentuated central bronchovascular markings.No peripheral consolidation, pleural effusion, or pneumothorax is present. The heart size is normal. IMPRESSION: No consolidation > Interpreting Provider: Zain Saenz MD on 07/04/2022 1:01 PM Keke Conroy DIRECTOR [facility] ORDERABLES * EKG 12-LEAD (07/04/2022 12:41 PM CDT) Ventricular Rate 71 BPM [facility] MUSE Atrial Rate 71 BPM [facility] P-R Interval 142 ms [facility] QRS Duration ms 82 ms [facility] Q-T Interval ms 390 ms [facility] QTC Calculation (Bezet) 423 ms [facility] MUSE Calculated P [place] 61 degrees [facility] MUSE Calculated R [place] 21 degrees [facility] MUSE Calculated T [place] 35 degrees [facility] Interpretation EKG Normal sinus rhythm with sinus arrhythmia poor R wave progression Borderline ECG No previous ECGs available Confirmed by MD IVANNA, WILLAM Bowens ([id number]) on 07/05/2022 8:11:41 AM [facility] MUSE 07/04/2022 12:4 1 PM CDT 07/05/2022 8:11 AM CDT Keke Conroy [facility] ECG ORDERAB LES [facility] * (ABNORMAL) URINALYSIS REFLEX TO MICROSCOPIC NO CULTURE (01/09/2022 2:46 PM SOLAR MANUFACTURER'S REPRESENTATIVE) Only the most recent of4 resultswithin the time period is included. Color UA Yellow Straw, Yellow 01/09/2022 3:[address] [facility] Clarity UA Clear Clear 01/09/2022 3:[address] [facility] Glucose UA Negative Negative 01/09/2022 3:[address] [facility] Bilirubin UA Negative Negative 01/09/2022 3:[address] [facility] Ketone UA Negative Negative 01/09/2022 3:[address] [facility] Specific Rougon UA 1.059(H) 1.005 - 1.030 01/09/2022 3:[address] [facility] Blood UA Negative Negative 01/09/2022 3:[address] [facility] pH UA 7.0 5.0 - 8.0 pH 01/09/2022 3:[address] [facility] Protein UA Negative Negative 01/09/2022 3:[address] [facility] Urobilinogen UA Negative Negative mg/dL 01/09/2022 3:[address] [facility] Nitrite UA Negative Negative 01/09/2022 3:[address] [facility] Leukocyte UA Negative Negative 01/09/2022 3:[address] [facility] Urine Microscopy Urine microscopy not indicated 01/09/2022 3:[address] [facility] Urine URINE SPECIMEN OBTAINED BY CLEAN CATCH PROCEDURE / Unknown Collection / Unknown 01/09/2022 2:46 PM SOLAR MANUFACTURER'S REPRESENTATIVE 01/09/2022 2:57 PM SOLAR MANUFACTURER'S REPRESENTATIVE Narrative [facility] - 01/09/2022 3:09 PM SOLAR MANUFACTURER'S REPRESENTATIVE Rolando Sheehan PA-C LAB - URINALYSIS ORD ERABLES [facility] [address] [place] [address] * CT ABDOMEN AND PELVIS WITH IV CONTRAST (01/09/2022 1:56 PM SOLAR MANUFACTURER'S REPRESENTATIVE) Only the most recent of4 resultswithin the time period is included. Anatomical Region Laterality Modality Abdomen, Pelvis Computed Tomogra phy 01/09/2022 2:02 PM SOLAR MANUFACTURER'S REPRESENTATIVE Impressions 01/09/2022 2:05 PM SOLAR MANUFACTURER'S REPRESENTATIVE Right adnexal cyst with likely some small amount of free fluid *Reading Radiologist: Zain Saenz on 01/09/2022 at 2:05 PM Narrative 01/09/2022 2:05 PM SOLAR MANUFACTURER'S REPRESENTATIVE CT ABDOMEN WITH CONTRAST CT PELVIS WITH [...] ORDERABLES * CULTURE URINE (11/05/2021 2:53 AM SOLAR MANUFACTURER'S REPRESENTATIVE) Culture Urine 50,000-100,000 CFU/mL urogenital navid JEANETTE 11/06/2021 9:10 AM SOLAR MANUFACTURER'S REPRESENTATIVE [facility] Urine URINE SPECIMEN OBTAINED BY CLEAN CATCH PROCEDURE / Unknown Collection / Unknown 11/05/2021 2:53 AM SOLAR MANUFACTURER'S REPRESENTATIVE 11/05/2021 2:53 AM SOLAR MANUFACTURER'S REPRESENTATIVE Jamar Patton MD LAB - MICROBIOLOGY ORDERABLES Performing Organization Address City/State/[facility] Co de Phone Number [facility] [address] [place], [place] [address], [facility] [phone] * SARS-COV-2 (COVID-19) FLU A/B RSV PCR RAPID (11/05/2021 12:48 AM SOLAR MANUFACTURER'S REPRESENTATIVE) COVID-19 PCR Not detected Not detected 11/05/20 1:35 AM SOLAR MANUFACTURER'S REPRESENTATIVE [facility] Influenza A PCR Not detected Not detected 11/05/2021 1:35 AM SOLAR MANUFACTURER'S REPRESENTATIVE [facility] Influenza B PCR Not detected Not detected 11/05/2021 1:35 AM SOLAR MANUFACTURER'S REPRESENTATIVE [facility] RSV PCR Not detected Not detected 11/05/2021 1:35 AM SOLAR MANUFACTURER'S REPRESENTATIVE [facility] Microbiology SPECIMEN FROM NASOPHARYNGEAL STRUCTURE / Unknown Collection / Unknown 11/05/2021 12:48 AM SOLAR MANUFACTURER'S REPRESENTATIVE 11/05/2021 12:53 AM SOLAR MANUFACTURER'S REPRESENTATIVE Narrative [facility] - 11/05/2021 1:35 AM SOLAR MANUFACTURER'S REPRESENTATIVE This nucleic acid amplification assay has been [...] Jamar Patton MD LAB - MICROBIOLOGY ORDERABLES [facility] [address] [id number] * XR CHEST 1VW PORTABLE (11/05/2021 12:08 AM SOLAR MANUFACTURER'S REPRESENTATIVE) Only the most recent of2 resultswithin the time period is included. Anatomical Region Laterality Modality Chest Radiographic [place] 11/05/2021 10:0 4 AM SOLAR MANUFACTURER'S REPRESENTATIVE Narrative 11/05/2021 10:04 AM SOLAR MANUFACTURER'S REPRESENTATIVE Portable AP chest INDICATION: Chest pain and [...] (ABNORMAL) URINE MICROSCOPIC ONLY (11/04/2021 11:20 PM SOLAR MANUFACTURER'S REPRESENTATIVE) Only the most recent of2 resultswithin the time period is included. RBC UA 11-20(A) None Seen, 0-2, 3-5 # /hpf 11/04/2021 11:55 PM SOLAR MANUFACTURER'S REPRESENTATIVE [facility] WBC UA 21-50(A) None Seen, 0-5 # /hpf 11/04/2021 11:55 PM SOLAR MANUFACTURER'S REPRESENTATIVE [facility] Bacteria UA Trace(A) None Seen 11/04/2021 11:55 PM SOLAR MANUFACTURER'S REPRESENTATIVE [facility] Squamous Epithelial Cells 6-10(A) None Seen, 0-2, 3-5 /hpf 11/04/2021 11:55 PM SOLAR MANUFACTURER'S REPRESENTATIVE [facility] Mucus UA 3+ /LPF 11/04/2021 11:55 PM SOLAR MANUFACTURER'S REPRESENTATIVE [facility] Urine URINE SPECIMEN OBTAINED BY CLEAN CATCH PROCEDURE / Unknown Collection / Unknown 11/04/2021 11:20 PM SOLAR MANUFACTURER'S REPRESENTATIVE 11/04/2021 11:24 PM SOLAR MANUFACTURER'S REPRESENTATIVE Narrative [facility] - 11/04/2021 11:55 PM SOLAR MANUFACTURER'S REPRESENTATIVE Jamar Patton MD LAB - URINALYSIS O RDERABLES Performing Organization Address City/[facility]/ZIP Co de Phone Number [facility] [address] [phone] * HCG URINE QUALITATIVE - POCT (IP) INTERFACED (10/31/2021 6:54 AM SOLAR MANUFACTURER'S REPRESENTATIVE) HCG Qual Urine Negative Negative 10/31/2021 6:59 AM SOLAR MANUFACTURER'S REPRESENTATIVE [facility] Urine URINE / Unknown 10/31/2021 6 :54 AM SOLAR MANUFACTURER'S REPRESENTATIVE 10/31/2021 6:59 AM SOLAR MANUFACTURER'S REPRESENTATIVE Rafa Peres MD LAB - POINT OF CARE ORDERABLES Performing Organization Address [facility] Co de Phone Number [facility] [address] [place] [phone] * HCG URINE QUAL POCT NOTIFICATION (10/31/2021 6:43 AM SOLAR MANUFACTURER'S REPRESENTATIVE) Comment Notification Label Only - See Separate Report 10/31/2021 8:00 AM SOLAR MANUFACTURER'S REPRESENTATIVE [facility] Urine URINE / Unknown 10/31/2021 6 :43 AM SOLAR MANUFACTURER'S REPRESENTATIVE 10/31/2021 6:47 AM SOLAR MANUFACTURER'S REPRESENTATIVE Rafa Peres MD LAB - URINALYSIS ORD ERABLES Performing Organization Address City/[facility]/ZIP Co de Phone Number [facility] [address] [phone] * URINE MICROSCOPIC ONLY REFLEX TO CULTURE (09/10/2021 9:53 AM CDT) Reflex Status Culture not indicated 09/10/2021 10:11 AM CDT [facility] RBC UA 0-2 None Seen, 0-2, 3-5 # /hpf 09/10/2021 10:11 AM CDT [facility] WBC UA 0-5 None Seen, 0-5 # /hpf 09/10/2021 10:11 AM CDT [facility] Bacteria UA None Seen None Seen 09/10/2021 10:11 AM [facility] Squamous Epithelial Cells 3-5 None Seen, 0-2, 3-5 /hpf 09/10/2021 10:11 AM [facility] Urine URINE SPECIMEN OBTAINED BY CLEAN CATCH PROCEDURE / Unknown Collection / Unknown 09/10/2021 9:53 AM CDT 09/10/2021 10:03 AM CDT Narrative [facility] - 09/10/2021 10:11 AM CDT Rolando Sheehan PA-C LAB - URINALYSIS ORD ERABLES [facility] [address] [place] [address] * (ABNORMAL) URINALYSIS REFLEX MICROSCOPIC REFLEX CULTURE (09/10/2021 9:53 AM CDT) Color UA Yellow Straw, Yellow 09/10/2021 10:08 AM [facility] Clarity UA Clear Clear 09/10/2021 10:08 AM [facility] Glucose UA Negative Negative 09/10/2021 10:08 AM [facility] Bilirubin UA Negative Negative 09/10/2021 10:08 AM [facility] Ketone UA Negative Negative 09/10/2021 10:08 AM [facility] Specific Rougon UA 1.013 1.005 - 1.030 09/10/2021 10:08 AM [facility] Blood UA 2+(A) Negative 09/10/2021 10:08 AM [facility] pH UA 7.0 5.0 - 8.0 pH 09/10/2021 10:08 AM [facility] Protein UA Negative Negative 09/10/2021 10:08 AM [facility] Urobilinogen UA Negative Negative mg/dL 09/10/2021 10:08 AM [facility] Nitrite UA Negative Negative 09/10/2021 10:08 AM [facility] Leukocyte UA Negative Negative 09/10/2021 10:08 AM [facility] Urine Microscopy Urine microscopy to follow 09/10/2021 10:08 AM [facility] Reflex Status Culture not indicated 09/10/2021 10:08 AM CDT [facility] Urine URINE SPECIMEN OBTAINED BY CLEAN CATCH PROCEDURE / Unknown Collection / Unknown 09/10/2021 9:53 AM CDT 09/10/2021 10:03 AM CDT Narrative [facility] - 09/10/2021 10:08 AM CDT Rolando Sheehan PA-C LAB - URINALYSIS ORD ERABLES [facility] [address] [place] [address] * SARS-COV-2 (COVID-19) IN HOUSE (04/27/2021 2:36 AM CDT) COVID-19 PCR Not detected Not detected 04/27/2021 8:14 AM CDT [facility] Microbiology SPECIMEN FROM NASOPHARYNGEAL STRUCTURE / Unknown Collection / Unknown 04/27/2021 2:36 AM CDT 04/27/2021 2:41 AM CDT Narrative [facility] - 04/27/2021 8:14 AM CDT This nucleic acid amplification assay performance was validated by [facility]. This test has been authorized [...] Wolff MD LAB - MICROBIOLOGY O MAHENDRA [facility] [address] [place] [address] [phone] * INFLUENZA A+B ANTIGEN RAPID (04/27/2021 2:36 AM CDT) Influenza A Antigen Negative Negative 04/27/2021 2:56 AM CDT [facility] Influenza B Antigen Negative Negative 04/27/2021 2:56 AM CDT [facility] Microbiology SPECIMEN FROM NASOPHARYNGEAL STRUCTURE / Unknown Collection / Unknown 04/27/2021 2:36 AM CDT 04/27/2021 2:41 AM CDT Narrative [facility] - 04/27/2021 2:56 AM CDT The [...] Wolff MD LAB - MICROBIOLOGY O MAHENDRA [facility] [address] [place] [address] * HCG URINE QUALITATIVE (03/17/2021 8:17 PM CDT) Pathologist [facility] hCG Qualitative Urine Negative Negative 03/17/2021 8:34 PM CDT [facility] Urine URINE / Unknown Collection / Unknown 03/17/2021 8:17 PM CDT 03/17/2021 8:21 PM CDT Zain Wolff MD LAB - URINALYSIS ORD ERABLES [facility] [address] [address]
--- OUTSIDE RECORDS SUMMARY | 2025-02-08 01:17 | XMS_ITS | Clinical Summary ---
Author Organization [facility] [employer] Address [address] [place] [address] Care Team Providers Care Sample Finisher Name Role Phone Unavailable Primary Care Provider Unavailabl e Source Comments [facility] [employer],non-owned Affiliates and Associated Physician Practices is amultiple site organization consisting of ambulatory clinics and hospital sitesin [place], [place], [place] and [place]. This disclosure is being madepursuant to the Care Everywhere program and may not contain all information available regarding this patient. Last updated 18.[facility] [employer] Allergies Active Allergy Reactions Criticality Noted Date [...]
[2025-02-08 10:21] LABS: BEDSIDEPREGUCG Negative (Negative)
[2025-02-08] MEDS: ACETAMINOPHEN 500 MG TABLET 1000 MG PO (10:37)
[2025-02-08] MEDS: KETOROLAC 15 MG/ML VIAL (*BKC) IV PUSH (10:37)
[2025-02-08] MEDS: SCOPOLAMINE 1 MG PATCH 1 PATCH TRANSDERM (10:39)
[2025-02-08] MEDS: LACTATED RINGERS 1,000 ML 30 ML IV CONT ×2 (10:39→12:45)
--- NOTE | 2025-02-08 10:40 | WPDANESEPPF ---
Anes - Initial Pre Proc Eval Procedure: Operation Date: 02/08/25 12:00 Proposed Procedures p Laparoscopic Cholecystectomy, Possible Open - Jhon Paulino DO Date/Time: 02/08/25 10:40 Surgeon: Jhon Paulino DO Pre Op Diagnosis: symptomatic cholelithiasis Patient Data Age: 29 Gender: F Height: 1.57 m Weight: 78.8 kg Last Vital Signs Temp 37.1 C 02/08/25 10:10 Pulse 79 02/08/25 10:10 Resp 18 02/08/25 10:10 BP 103/55 L 02/08/25 10:10 Pulse Ox 99 02/08/25 10:10 O2 Del Method Room Air 02/08/25 10:10 Allergies Allergy/AdvReac Type Severity Reaction Status Date / Time Penicillins Allergy Mild Itching Verified 02/08/25 10:16 amoxicillin Allergy Itching Verified 02/08/25 10:16 Home Medications ?Medication ?Instructions ?Recorded ?Confirmed ?Type hydrocodone 5 mg-acetaminophen 325 1 tablet PO Q8H PRN pain #20 tabs 01/26/25 02/08/25 Rx mg tablet trazodone 100 mg tablet 100 mg PO QHS PRN anxiety 02/01/25 02/04/25 History Laboratory Tests 02/08/25 02/08/25 10:19 10:36 Amylase Pending POC Urine HCG, Qual Negative (Negative) Patient hx anesthesia problems: none Family hx anesthesia problems: none Results Review: All pre-operative results and documents have been reviewed as part of the pre-operative evaluation. [facility] Past Medical History Medical History Patient denies medical problems GERD (gastroesophageal reflux disease) Anxiety Surgical History Surgical History History of delivery History of open heart surgery Family History Family History Other Cerebrovascular accident Depression Diabetes mellitus Heart disease Social History Social History Smoking status: Never smoker Alcohol intake: current Substance use: never Substance use type: does not use Do You Feel Safe in your Home?: Yes Lack of Transportation: No Lack of Food: Never True Current Housing: I Have Housing Concerned About Future Housing: No Difficulty Paying Gas/Electric Bills: No Difficulty Paying for Meds: No Currently Unemployed: No Education: Grade School Difficulty w/ Childcare or Family Care: No Living arrangements: with family Pj - Tam Final PreProcedure Day of Procedure 02/08/25 10:40 Patient weight: obese Heart: regular rate and rhythm Lungs: clear to auscultation Airway: Mallampati scale class II Neurological: alert and oriented Last oral intake: >/= 8 hours ASA classification: II Emergent: no Anesthetic plan: proceed Anesthesia type and monitoring: general ETT and standard monitoring Results Review: All pre-operative results and documents have been reviewed as part of the pre-operative evaluation. Informed Consent: The patient's anesthetic plan and its attendant risks and benefits were discussed with the patient/family/POA. Questions were solicited and answers provided to the satisfaction of the patient/family/POA.
[2025-02-08 10:52] LABS: Amylase 79 U/L (30-110)
--- NOTE | 2025-02-08 11:17 | WPDHPUPDATE1 ---
History and Physical Update Update Date/Time: 02/08/25 11:17 History and Physical has been reviewed, including an updated exam of the patient. There are NO changes in the patient's condition. Risks, benefits, and alternatives have been discussed and questions answered. Patient agrees to proceed with procedure.
[2025-02-08] MEDS: ceFAZolin 2 GM/D5W 50 ML 2 GM/50 ML BAG IVPB (11:49)
[2025-02-08] MEDS: BUPIVACAINE/EPINEPHRINE 0.5% 30 ML VIAL INFILTRATE (12:05)
--- NOTE | 2025-02-08 12:24 | W.PM.PROC2 ---
Procedure Note - Detailed Date of Procedure 02/08/25 Pre-op Diagnosis symptomatic cholelithiasis Post-op Diagnosis Same Procedure Performed Laparoscopic cholecystectomy Surgeon Jhon Paulino, DO Anesthesia General and Local (0.5% bupivacaine) Indications This is a 29-year-old woman who presented with intermittent right upper quadrant abdominal pain over the past 5 years. She has noticed fried or heavier foods seem to cause the symptoms. She had recently been to the emergency department and ultrasound at that time showed evidence of cholelithiasis. Discussions were made with the patient about treatment options and decision was made to proceed with laparoscopic cholecystectomy, possible open. Findings Laparoscopic cholecystectomy was performed. The gallbladder had some evidence of chronic cholecystitis with a large gallstone at the neck of the gallbladder. Gallbladder wall was chronically thickened. The cystic duct appeared normal in size. No other intra-abdominal abnormalities were noted. The gallbladder was removed and sent to the lab for pathology. Description of Procedure Procedure as well as risks, benefits, and alternatives were discussed with patient. Written consent was obtained and placed in chart prior to procedure. The patient was brought back to surgical suite. Patient was placed in supine position on operating table. Time-out was done to confirm patient and procedure. Patient was then intubated by the anesthesia department. Abdomen was prepped and draped in sterile fashion using chlorhexidine prep. 0.5% bupivacaine with epinephrine was infiltrated at each site of incision. A 5 millimeter incision was made near the umbilicus, and a 5 millimeter Optiview trocar was advanced through the abdominal layers under direct visualization. Once inside the abdominal cavity, carbon dioxide was insufflated to create a pneumoperitoneum. The camera was inserted and the abdomen was inspected. No immediate abnormalities were identified. The patient was placed in reverse Trendelenburg position and rotated slightly to the left. An 11 millimeter incision was made in the subxiphoid region, and an 11 millimeter trocar was inserted under direct visualization. Two 5 millimeter incisions were made in the right upper quadrant, and two 5 millimeter trocars were inserted under direct visualization. The gallbladder was identified and grasped at the fundus and retracted superiorly. It was then grasped at the infundibulum retracted laterally. Careful dissection around the neck of the gallbladder was performed using blunt dissection with a [place] grasper and hook electrocautery. The cystic duct was identified, and a window was created behind it. The cystic artery was also identified and a window was created behind it. The critical view of safety was identified, visualizing the cystic duct running directly into the neck of the gallbladder, and the cystic artery running directly into the wall of the gallbladder. A 5 millimeter clip speedboat driver was then used to place 2 clips proximally and 1 clip distally on both the cystic duct and cystic artery. They were then both transected using endoscopic scissors. Once safely away from the rissa hepatitis, the gallbladder was dissected free from the liver bed using hook electrocautery. Hemostasis was achieved along the way. The gallbladder was removed completely and then removed through the subxiphoid port. The liver bed was then inspected. Hemostasis appeared adequate, and our clips appeared secure. The area was gently irrigated with sterile saline. No other abnormalities were seen. The patient was flattened out in bed, and 1 final inspection was made around the abdominal cavity. The subxiphoid port was removed, and a José Miguel Antwon cone was used to approximate the fascia with an 0-Vicryl simple interrupted suture. The remaining ports were then removed under direct visualization, the camera was removed, and the pneumoperitoneum was released. The skin of the incisions was approximated using 4-0 Monocryl subcuticular sutures. Exofin glue was applied on top. The patient was then awakened from anesthesia, extubated, and transferred to recovery. Estimated Blood Loss 5 Pathology Yes (Gallbladder) Complications No immediate complications Condition Stable Disposition Same day [facility] Billing Surgery - Charge Forward: Surgery Billing
[2025-02-08] MEDS: ONDANSETRON INJ 4 MG/2 ML VIAL IV PUSH (12:41)
[2025-02-08] MEDS: fentaNYL CITRATE INJ (*CRX) 100 MCG/2 ML VIAL 25 MCG IV PUSH ×2 (12:44→12:48)
[2025-02-08] MEDS: oxyCODONE HCL (*CRX) 5 MG TAB IR PO (13:32)
== END 2025-02-08 14:22 | disposition home or self-care (01) ==
PROVIDERS: PCP Family Medicine; Visit Provider Surgery
PROC: 0FT44ZZ Resection of Gallbladder, Percutaneous Endoscopic Approach (ICD-10-PCS; CPT 47562; principal; 2025-02-08 12:00)
DX: K80.10 Calculus of gallbladder with chronic cholecystitis without obstruction (principal); E66.9 Obesity, unspecified; Z68.31 Body mass index [BMI] 31.0-31.9, adult
CPT/HCPCS: 47562; 36415; 82150; 88304; A9270; J0690; J1100; J1596; J1885; J2003; J2250; J2405; J2704; J3010; J7030; J7120